=== PATIENT | male | born 1960 | race Caucasian/White ===

== ENCOUNTER → 2020-06-01 10:21 | Outpatient (BNVA) | payer MEDICARE, MEDICAID, SELFPAY | PROVIDERS: PCP Internal Medicine; Referring Provider Internal Medicine; Visit Provider Urology | DX: N40.1 Benign prostatic hyperplasia with lower urinary tract symptoms (principal); N13.8 Other obstructive and reflux uropathy; R35.1 Nocturia; N39.43 Post-void dribbling | CPT/HCPCS: 99212 ==

== ENCOUNTER 2020-11-01 08:57 | Outpatient (REF) | payer OTHER, SELFPAY ==
[2020-11-01 09:51] LABS: MANUAL DIFF FLAG NO
[2020-11-01 09:54] LABS: Basophils Absolute Auto 0.1 X10*3/uL (0.0-0.2); Basophils Percent Auto 0.6 % (0-2); Eosinophils Absolute Auto 0.2 X10*3/uL (0.0-0.4); Eosinophils Percent Auto 2.3 % (0-4); Hematocrit 47.2 % (42-52); Hemoglobin 15.6 g/dl (14.0-18.0); Imm Gran Abs Auto 0.02 X10*3/uL (0.00-0.03); Imm Gran Pct Auto 0.2 % (0.0-0.4); Lymphocytes Absolute Auto 2.5 X10*3/uL (1.2-4.9); Lymphocytes Percent Auto 26.9 % (20-40); Mean Corpuscular HGB Conc 33.1 g/dl (31.0-36.0); Mean Corpuscular Hemoglobin 31.3 pg (27.0-33.0); Mean Corpuscular Volume 94.8 fL (80-98); Mean Platelet Volume 11.4 fL (9.4-12.4); Monocytes Absolute Auto 0.7 X10*3/uL (0.1-1.2); Monocytes Percent Auto 7.1 % (2-11); Neutrophils Absolute Auto 5.9 X10*3/uL (2.0-8.3); Neutrophils Percent Auto 62.9 % (45-73); Platelet Count 291 X10*3/uL (160-400); Red Blood Count 4.98 X10*6/uL (4.60-5.80); Red Cell Distribution Width 14.1 % (11.0-16.0); White Blood Count 9.3 X10*3/uL (4.8-10.8)
[2020-11-01 10:20] LABS: Alanine Aminotransferase 25 U/L (0-40); Albumin Level 4.4 g/dL (3.5-5.0); Alkaline Phosphatase 85 U/L (39-117); Anion Gap 13 (12-20); Aspartate Amino Transferase 21 U/L (5-37); Bilirubin Total 0.5 mg/dL (0.0-1.0); Blood Urea Nitrogen 13 mg/dL (9-16); Calcium 9.5 mg/dL (8.4-10.2); Carbon Dioxide 28 mmol/L (22-29); Chloride 103 mmol/L (96-108); Cholesterol 148 mg/dL; Estimated Glomerular Filt Rate > 60; Glucose Random 136 mg/dL (60-115); HDL Cholesterol 36 mg/dL; LDL Cholesterol Calculated 83 mg/dl; Potassium 4.7 mmol/L (3.3-5.1); Sodium 139 mmol/L (135-145); Total Protein 7.3 g/dL (6.5-8.0); Triglycerides 148 mg/dL
[2020-11-01 10:35] LABS: Free T4 (Free Thyroxine) 0.71 ng/dL (0.71-1.85)
[2020-11-01 10:39] LABS: Estimated Average Glucose 166 mg/dL; Hemoglobin A1c % 7.4 %
[2020-11-01 10:46] LABS: Creatinine Urine 142.95 mg/dL; Microalbum/Creatinine Ratio Ur 11.8 ug/mg cr
== END 2020-11-01 08:58 | disposition home or self-care (01) ==
LOC: HO.LAB 08:57
PROVIDERS: PCP Internal Medicine; Visit Provider Internal Medicine
DX: E11.65 Type 2 diabetes mellitus with hyperglycemia (principal); E78.00 Pure hypercholesterolemia, unspecified
CPT/HCPCS: 36415; 80053; 80061; 82043; 83036; 84439; 84443; 85025

== ENCOUNTER 2021-03-08 10:11 | Outpatient (REF) | payer OTHER, SELFPAY ==
[2021-03-08 12:39] LABS: Alanine Aminotransferase 30 U/L (0-40); Albumin Level 4.5 g/dL (3.5-5.0); Alkaline Phosphatase 82 U/L (39-117); Anion Gap 14 (12-20); Aspartate Amino Transferase 23 U/L (5-37); Bilirubin Total 0.4 mg/dL (0.0-1.0); Blood Urea Nitrogen 12 mg/dL (9-16); Calcium 9.5 mg/dL (8.4-10.2); Carbon Dioxide 29 mmol/L (22-29); Chloride 103 mmol/L (96-108); Estimated Glomerular Filt Rate > 60; Glucose Random 105 mg/dL (60-115); Potassium 4.9 mmol/L (3.3-5.1); Sodium 141 mmol/L (135-145); Total Protein 7.4 g/dL (6.5-8.0)
== END 2021-03-08 10:12 | disposition home or self-care (01) ==
LOC: HO.LAB 10:11
PROVIDERS: PCP Internal Medicine; Visit Provider Internal Medicine
DX: E11.65 Type 2 diabetes mellitus with hyperglycemia (principal)
CPT/HCPCS: 36415; 80053

== ENCOUNTER 2021-05-13 15:17 | Emergency (ER) | payer OTHER, SELFPAY ==
--- NOTE | ~2021-05-13 | XR_ITS ---
EXAMINATION: RIGHT ELBOW, RIGHT FOREARM, AND RIGHT HUMERUS. CLINICAL INFORMATION: Trauma COMPARISON: September 02, 2019 TECHNIQUE: 2 views of the shoulder, 3 views of the elbow, and 2 views of the forearm. FINDINGS: 3 views of the right elbow do not demonstrate any evidence of acute fracture or dislocation. No effusion is appreciated. There is evidence for lateral epicondylitis. AP and lateral views of the right forearm do not demonstrate any evidence of acute fracture or dislocation. There is a large amount of soft tissue swelling present with suspicion of hematoma. There is a linear density about the mid and distal radius however this is not seen on other views and may represent a vascular channel. 2 views of the right shoulder do not demonstrate any evidence of acute fracture or dislocation. Glenohumeral joint unremarkable. Mild spurring about the acromioclavicular joint is seen. XR/XR forearm RT 2V IMPRESSION: Large amount soft tissue swelling without underlying acute bony abnormality about the forearm.. Lateral epicondylitis without elbow effusion. No fracture or dislocation of the right shoulder.
--- NOTE | ~2021-05-13 | XR_ITS ---
EXAMINATION: RIGHT ELBOW, RIGHT FOREARM, AND RIGHT HUMERUS. CLINICAL INFORMATION: Trauma COMPARISON: September 02, 2019 TECHNIQUE: 2 views of the shoulder, 3 views of the elbow, and 2 views of the forearm. FINDINGS: 3 views of the right elbow do not demonstrate any evidence of acute fracture or dislocation. No effusion is appreciated. There is evidence for lateral epicondylitis. AP and lateral views of the right forearm do not demonstrate any evidence of acute fracture or dislocation. There is a large amount of soft tissue swelling present with suspicion of hematoma. There is a linear density about the mid and distal radius however this is not seen on other views and may represent a vascular channel. 2 views of the right shoulder do not demonstrate any evidence of acute fracture or dislocation. Glenohumeral joint unremarkable. Mild spurring about the acromioclavicular joint is seen. XR/XR elbow RT min 3V IMPRESSION: Large amount soft tissue swelling without underlying acute bony abnormality about the forearm.. Lateral epicondylitis without elbow effusion. No fracture or dislocation of the right shoulder.
--- NOTE | ~2021-05-13 | XR_ITS ---
EXAMINATION: RIGHT ELBOW, RIGHT FOREARM, AND RIGHT HUMERUS. CLINICAL INFORMATION: Trauma COMPARISON: September 02, 2019 TECHNIQUE: 2 views of the shoulder, 3 views of the elbow, and 2 views of the forearm. FINDINGS: 3 views of the right elbow do not demonstrate any evidence of acute fracture or dislocation. No effusion is appreciated. There is evidence for lateral epicondylitis. AP and lateral views of the right forearm do not demonstrate any evidence of acute fracture or dislocation. There is a large amount of soft tissue swelling present with suspicion of hematoma. There is a linear density about the mid and distal radius however this is not seen on other views and may represent a vascular channel. 2 views of the right shoulder do not demonstrate any evidence of acute fracture or dislocation. Glenohumeral joint unremarkable. Mild spurring about the acromioclavicular joint is seen. XR/XR humerus RT IMPRESSION: Large amount soft tissue swelling without underlying acute bony abnormality about the forearm.. Lateral epicondylitis without elbow effusion. No fracture or dislocation of the right shoulder.
[2021-05-13 15:43] VITALS: BP 125/75; PULSE 82; RESP 18; TEMP 36.3; O2SAT 97; BMI 37.3
[2021-05-13] MEDS: Ketorolac Tromethamine 60 MG/2 ML VIAL IM (16:41)
[2021-05-13] MEDS: Diphth,Pertus(ACell),Tet Adult 0.5 ML SYRINGE IM (16:41)
[2021-05-13] MEDS: Amoxicillin/Potassium Clav 875 MG TABLET PO (16:41)
--- NOTE | 2021-05-13 17:05 | ED.EXTPRO ---
HPI - Extremity Problem General Chief complaint: Extremity Injury, Upper Stated complaint: arm injury Time Seen by Provider: 05/13/21 16:32 Source: patient Mode of arrival: ambulatory Limitations: no limitations History of Present Illness HPI Narrative: Patient was working on his car went underneath crab picker the nut , adis gave off, car draft and crushed his right forearm patient comes here with abrasion to the dorsal aspect of right forearm with moderate amount of soft tissue swelling no paresthesias good range of movement no other injury Related Data Home Medications Medication Instructions Recorded Confirmed aspirin 81 mg tablet,delayed 81 mg PO DAILY 05/13/20 01/28/21 release (Adult Aspirin Regimen) trazodone 50 mg tablet 50 mg PO BEDTIME PRN 05/13/20 01/28/21 Previous Rx's Medication Instructions Recorded blood-glucose meter (FreeStyle #1 ea 05/25/20 [place] Lite) tamsulosin 0.4 mg capsule 0.4 mg PO DAILY #90 cap 06/01/20 blood sugar diagnostic (FreeStyle 1 strip MISCELLANEOUS DAILY #100 10/29/20 Lite Strips) strip lancets 28 gauge (FreeStyle 28 gauge MISCELLANEOUS DAILY #100 10/29/20 Lancets) cap sertraline 25 mg tablet 25 mg PO DAILY #90 tab 01/17/21 metformin 500 mg tablet 500 mg PO BID 90 Days #180 tab 01/20/21 lisinopril 5 mg tablet 5 mg PO DAILY #30 tab 01/28/21 atorvastatin 20 mg tablet 20 mg PO DAILY #90 tab 04/08/21 terbinafine HCl 250 mg tablet 250 mg PO DAILY #30 tab 04/08/21 olopatadine 0.1 % eye drops 1 drp OPHTHALMIC (EYE) BID 30 Days 05/03/21 #5 ml amoxicillin 875 mg-potassium 1 tab PO BID #20 tab 05/13/21 clavulanate 125 mg tablet (Augmentin) oxycodone-acetaminophen 5 mg-325 1 tab PO Q6H PRN #20 tab 05/13/21 mg tablet (Percocet) Allergies Allergy/AdvReac Type Severity Reaction Status Date / Time No Known Allergies Allergy Verified 05/03/21 10:55 [No Known Allergies*] Review of Systems Review of Systems: Yes all other systems are reviewed and are negative PMFSH Past Medical History Medical History Complex renal cyst Crush injury arm Hypercholesterolemia Obesity Onychomycosis Tobacco abuse Type 2 diabetes mellitus with hyperglycemia Surgical History H/O wisdom tooth extraction Family History Family History Father No problems noted. Mother Diabetes Hypertension Breast cancer Heart attack Social History Social History Housing: Apartment Alcohol intake: former Patient Tobacco Use Status: Current everyday Tobacco user Tobacco use type: Cigarette Cigarettes Per Day: 1 e-Cigarette/Vaping Use: Never Used Second Hand Smoke Exposure: No Advance Directives: No Advance Directives Information Provided: Yes service: No Current occupational status: disabled Physical Exam Vital Signs: Vital Signs: Last Vital Signs Temp 97.3 F 05/13/21 15:43 Pulse 82 05/13/21 15:43 Resp 18 05/13/21 15:43 BP 125/75 05/13/21 15:43 Pulse Ox 97 05/13/21 15:43 Body Mass Index 37.3 Const: General: well developed, alert and acute distress HENMT: Head: Yes normocephalic and Yes atraumatic Extrem: Shoulder/upper arm images: 1. Superficial abrasions extending from lower right arm to proximal right forearm with soft tissue swelling in the volar aspect which is not very tight neurovascular intact no significant increase in painwith passive movement of fingers no signs of compartment syndrome at this time MDM - Extremity (Nontraumatic) MDM Narrative Medical decision making narrative: Patient has significant abrasion contusion of the right forearm part clean with peroxide Xeroform dressing was applied patient was giving sling advised to come back in 2 days for recheck, x-ray negative for fracture. Patient was given antibiotic Augmentin and tetanus shot Discharge Plan Discharge Clinical Impression: Contusion of forearm, right Qualifiers: Encounter type: initial encounter Qualified Code(s): S50.11XA - Contusion of right forearm, initial encounter Patient Disposition: Home, Self-Care Instructions: Contusion in Adults (ED) Additional Instructions: Local care as advised Keep the area covered take antibiotics and pain medication Report to the ER if increased pain or tightness or numbness or tingling of the hand Wear the sling for support Wound recheck in 2 days Prescriptions: New oxycodone-acetaminophen [Percocet] 5-325 mg tablet 1 tab PO Q6H PRN (Reason: pain) Qty: 20 RF: 0 amoxicillin-pot clavulanate [Augmentin] 875-125 mg tablet 1 tab PO BID Qty: 20 RF: 0 No Action (DME) blood-glucose meter [FreeStyle [place] Lite] Kit See Rx Instructions .ROUTE .MEDSUPPLY Qty: 1 RF: 0 sertraline 25 mg tablet 25 mg PO DAILY Qty: 90 RF: 2 metformin 500 mg tablet 500 mg PO BID 90 Days Qty: 180 RF: 3 atorvastatin 20 mg tablet 20 mg PO DAILY Qty: 90 RF: 2 terbinafine HCl 250 mg tablet 250 mg PO DAILY Qty: 30 RF: 1 aspirin [Adult Aspirin Regimen] 81 mg tablet,delayed release (DR/EC) 81 mg PO DAILY RF: 0 trazodone 50 mg tablet 50 mg PO BEDTIME PRNRF: 0 lancets [FreeStyle Lancets] 28 gauge misc 28 gauge miscellaneous DAILY Qty: 100 RF: 3 FreeStyle Lite Strips Strip 1 strip miscellaneous DAILY Qty: 100 RF: 3 lisinopril 5 mg tablet 5 mg PO DAILY Qty: 30 RF: 5 olopatadine 0.1 % drops 1 drp ophthalmic (eye) BID 30 Days Qty: 5 RF: 0 tamsulosin 0.4 mg capsule 0.4 mg PO DAILY Qty: 90 RF: 3
== END 2021-05-13 17:14 | disposition home or self-care (01) ==
PROVIDERS: Emergency Provider Internal Medicine
DX: S50.11XA Contusion of right forearm, initial encounter (principal); S50.811A Abrasion of right forearm, initial encounter; Y29.XXXA Contact with blunt object, undetermined intent, initial encounter; Y93.9 Activity, unspecified; Y92.89 Other specified places as the place of occurrence of the external cause; Y99.9 Unspecified external cause status; F17.210 Nicotine dependence, cigarettes, uncomplicated; Z71.6 Tobacco abuse counseling; Z79.899 Other long term (current) drug therapy
CPT/HCPCS: 73060; 73080; 73090; 90471; 90715; 96372; 99283; 99284; J1885

== ENCOUNTER 2021-05-15 16:43 | Emergency (ER) | payer OTHER, SELFPAY ==
[2021-05-15 16:45] VITALS: BP 111/64; PULSE 70; RESP 18; TEMP 36.6; O2SAT 95; BMI 37.3
--- NOTE | 2021-05-15 17:45 | ED.WOUNDLAC ---
HPI - Wound/Laceration General Chief Complaint: Wound/Laceration Stated Complaint: Wound Check Time Seen by Provider: 05/15/21 17:18 Source: patient Mode of arrival: ambulatory Limitations: no limitations History of Present Illness HPI narrative: Patient status post abrasions/contusion right forearm seen here 2 days ago came here for follow-up for recheck of the wound as advised him to come patient swelling is getting better able to move his hand and wrist without significant pain no fever or chills patient taking Augmentin Related Data Home Medications Medication Instructions Recorded Confirmed aspirin 81 mg tablet,delayed 81 mg PO DAILY 05/13/20 01/28/21 release (Adult Aspirin Regimen) trazodone 50 mg tablet 50 mg PO BEDTIME PRN 05/13/20 01/28/21 Previous Rx's Medication Instructions Recorded blood-glucose meter (FreeStyle #1 ea 05/25/20 [place] Lite) tamsulosin 0.4 mg capsule 0.4 mg PO DAILY #90 cap 06/01/20 blood sugar diagnostic (FreeStyle 1 strip MISCELLANEOUS DAILY #100 10/29/20 Lite Strips) strip lancets 28 gauge (FreeStyle 28 gauge MISCELLANEOUS DAILY #100 10/29/20 Lancets) cap sertraline 25 mg tablet 25 mg PO DAILY #90 tab 01/17/21 metformin 500 mg tablet 500 mg PO BID 90 Days #180 tab 01/20/21 lisinopril 5 mg tablet 5 mg PO DAILY #30 tab 01/28/21 atorvastatin 20 mg tablet 20 mg PO DAILY #90 tab 04/08/21 terbinafine HCl 250 mg tablet 250 mg PO DAILY #30 tab 04/08/21 olopatadine 0.1 % eye drops 1 drp OPHTHALMIC (EYE) BID 30 Days 05/03/21 #5 ml amoxicillin 875 mg-potassium 1 tab PO BID #20 tab 05/13/21 clavulanate 125 mg tablet (Augmentin) oxycodone-acetaminophen 5 mg-325 1 tab PO Q6H PRN #20 tab 05/13/21 mg tablet (Percocet) mupirocin 2 % topical ointment 1 appl TOPICAL BID #22 g 05/15/21 Allergies Allergy/AdvReac Type Severity Reaction Status Date / Time No Known Allergies Allergy Verified 05/15/21 16:45 [No Known Allergies*] Review of Systems Review of Systems: Yes all other systems are reviewed and are negative [facility] Past Medical History Medical History Complex renal cyst Crush injury arm Hypercholesterolemia Obesity Onychomycosis Tobacco abuse Type 2 diabetes mellitus with hyperglycemia Surgical History H/O wisdom tooth extraction Family History Family History Father No problems noted. Mother Diabetes Hypertension Breast cancer Heart attack Social History Social History Housing: Apartment Alcohol intake: former Patient Tobacco Use Status: Current everyday Tobacco user Tobacco use type: Cigarette Cigarettes Per Day: 1 e-Cigarette/Vaping Use: Never Used Second Hand Smoke Exposure: No Advance Directives: No Advance Directives Information Provided: No service: No Current occupational status: disabled Physical Exam Vital Signs: Vital Signs: Last Vital Signs Temp 97.8 F 05/15/21 16:45 Pulse 70 05/15/21 16:45 Resp 18 05/15/21 16:45 BP 111/64 05/15/21 16:45 Pulse Ox 95 05/15/21 16:45 Body Mass Index 37.3 Extrem: Shoulder/upper arm images: 1. Abrasions looks clean no signs of infection soft tissue swelling and right forearm is getting better non tense neurovascular intact no signs of compartment syndrome at this time Procedures Procedure Narrative Procedure Narrative: Right forearm abrasions and contusion were clean with using peroxide bacitracin ointment and Xeroform dressing was applied part dressed with ABD pad Discharge Plan Discharge Clinical Impression: Contusion Qualifiers: Encounter type: subsequent encounter Contusion area: forearm Laterality: right Qualified Code(s): S50.11XD - Contusion of right forearm, subsequent encounter Patient Disposition: Home, Self-Care Instructions: Contusion in Adults (ED) Additional Instructions: Local care as advised Clean with peroxide and apply bacitracin ointment/Bactroban ointment Continue taking antibiotics Report to the ER if increased pain or swelling Keep moving your elbow and fingers Prescriptions: New mupirocin 2 % ointment 1 appl topical BID Qty: 22 RF: 0 No Action (DME) blood-glucose meter [FreeStyle [place] Lite] Kit See Rx Instructions .ROUTE .MEDSUPPLY Qty: 1 RF: 0 sertraline 25 mg tablet 25 mg PO DAILY Qty: 90 RF: 2 metformin 500 mg tablet 500 mg PO BID 90 Days Qty: 180 RF: 3 atorvastatin 20 mg tablet 20 mg PO DAILY Qty: 90 RF: 2 terbinafine HCl 250 mg tablet 250 mg PO DAILY Qty: 30 RF: 1 oxycodone-acetaminophen [Percocet] 5-325 mg tablet 1 tab PO Q6H PRN (Reason: pain) Qty: 20 RF: 0 amoxicillin-pot clavulanate [Augmentin] 875-125 mg tablet 1 tab PO BID Qty: 20 RF: 0 aspirin [Adult Aspirin Regimen] 81 mg tablet,delayed release (DR/EC) 81 mg PO DAILY RF: 0 trazodone 50 mg tablet 50 mg PO BEDTIME PRNRF: 0 lancets [FreeStyle Lancets] 28 gauge misc 28 gauge miscellaneous DAILY Qty: 100 RF: 3 [place] Lite Strips Strip 1 strip miscellaneous DAILY Qty: 100 RF: 3 lisinopril 5 mg tablet 5 mg PO DAILY Qty: 30 RF: 5 olopatadine 0.1 % drops 1 drp ophthalmic (eye) BID 30 Days Qty: 5 RF: 0 tamsulosin 0.4 mg capsule 0.4 mg PO DAILY Qty: 90 RF: 3
== END 2021-05-15 18:12 | disposition home or self-care (01) ==
PROVIDERS: Emergency Provider Internal Medicine; PCP Internal Medicine
DX: S50.812A Abrasion of left forearm, initial encounter (principal); S50.11XA Contusion of right forearm, initial encounter; F17.210 Nicotine dependence, cigarettes, uncomplicated; X58.XXXA Exposure to other specified factors, initial encounter; Y93.9 Activity, unspecified; Y92.9 Unspecified place or not applicable; Y99.9 Unspecified external cause status; Z71.6 Tobacco abuse counseling; Z48.00 Encounter for change or removal of nonsurgical wound dressing; Z79.899 Other long term (current) drug therapy; Z79.82 Long term (current) use of aspirin
CPT/HCPCS: 99283

== ENCOUNTER → 2021-06-09 08:54 | Outpatient (BNVA) | payer OTHER, SELFPAY | PROVIDERS: PCP Internal Medicine; Referring Provider Internal Medicine; Visit Provider Surgery | DX: L72.0 Epidermal cyst (principal) | CPT/HCPCS: 99202 ==

== ENCOUNTER 2022-08-31 12:21 | Outpatient (REF) | payer OTHER, SELFPAY ==
[2022-08-31 12:38] LABS: MANUAL DIFF FLAG NO
[2022-08-31 13:11] LABS: Basophils Absolute Auto 0.1 X10*3/uL (0.0-0.2); Basophils Percent Auto 0.7 % (0-2); Eosinophils Absolute Auto 0.2 X10*3/uL (0.0-0.4); Eosinophils Percent Auto 1.7 % (0-4); Hematocrit 51.2 % (42.0-52.0); Imm Gran Abs Auto 0.02 X10*3/uL (0.00-0.03); Imm Gran Pct Auto 0.2 % (0.0-0.4); Lymphocytes Absolute Auto 2.6 X10*3/uL (1.2-4.9); Lymphocytes Percent Auto 29.7 % (20-40); Mean Corpuscular HGB Conc 33.2 g/dl (31.0-36.0); Mean Corpuscular Hemoglobin 31.3 pg (27.0-33.0); Mean Corpuscular Volume 94.1 fL (80.0-98.0); Mean Platelet Volume 11.7 fL (9.4-12.4); Monocytes Absolute Auto 0.6 X10*3/uL (0.1-1.2); Monocytes Percent Auto 7.1 % (2-11); Neutrophils Absolute Auto 5.3 x10*3/uL (2.0-8.3); Neutrophils Percent Auto 60.6 % (45-73); Platelet Count 303 X10*3/uL (160-400); Red Blood Count 5.44 X10*6/uL (4.60-5.80); Red Cell Distribution Width 13.4 % (11.0-16.0); White Blood Count 8.7 X10*3/uL (4.8-10.8)
[2022-08-31 13:46] LABS: Estimated Average Glucose 177 mg/dL; Hemoglobin A1c % 7.8 %
[2022-08-31 13:58] LABS: Alanine Aminotransferase 40 U/L (0-40); Albumin Level 4.8 g/dL (3.5-5.0); Alkaline Phosphatase 94 U/L (39-117); Anion Gap 16 (12-20); Aspartate Amino Transferase 26 U/L (5-37); Bilirubin Total 0.5 mg/dL (0.0-1.0); Blood Urea Nitrogen 15 mg/dL (9-16); Calcium 10.2 mg/dL (8.4-10.2); Carbon Dioxide 27 mmol/L (22-29); Chloride 103 mmol/L (96-108); Cholesterol 182 mg/dL; Estimated Glomerular Filt Rate > 60; Glucose Random 129 mg/dL (60-115); HDL Cholesterol 41 mg/dL; LDL Cholesterol Calculated 105 mg/dl; Potassium 5.4 mmol/L (3.3-5.1); Sodium 141 mmol/L (135-145); Triglycerides 183 mg/dL
[2022-08-31 14:27] LABS: Creatinine Urine 175.59 mg/dL; Microalbum/Creatinine Ratio Ur 51.2 ug/mg cr
[2022-08-31 14:29] LABS: Folate 15.9 ng/mL (> or = 4.0); Free T4 (Free Thyroxine) 0.84 ng/dL (0.71-1.85); Prostate Specific Antigen Scr 0.42 ng/mL (<0.05-4.0); Thyroid Stimulating Hormone 1.36 uIU/mL (0.32-4.0); Vitamin B12 414 pg/mL (200-900)
== END 2022-08-31 12:22 | disposition home or self-care (01) ==
LOC: HO.LAB 12:21
PROVIDERS: PCP Internal Medicine; Visit Provider Internal Medicine
DX: Z12.5 Encounter for screening for malignant neoplasm of prostate (principal); E11.65 Type 2 diabetes mellitus with hyperglycemia; E78.00 Pure hypercholesterolemia, unspecified
CPT/HCPCS: 36415; 80053; 80061; 82043; 82607; 82746; 83036; 84153; 84439; 84443; 85025

== ENCOUNTER 2023-01-19 13:07 | Outpatient (REF) | payer OTHER, SELFPAY ==
--- NOTE | ~2023-01-19 | CT_ITS ---
EXAMINATION: LUNG CANCER SCREENING CT CHEST WITHOUT CONTRAST CLINICAL INFORMATION: Current smoker with 47 pack year history COMPARISON: None TECHNIQUE: Multidetector volumetric CT imaging of the chest was obtained noncontrast using low dose screening CT technique. Axial thin section 0.625 mm reformations in soft tissue and lung windows were obtained. Sagittal and coronal reformations were obtained. Axial MIP images were also created and reviewed. This CT examination was performed using dose optimization techniques as appropriate, variously including the following: *Automated exposure control *Adjustment of mA and/or kV according to patient size (this includes techniques or standardized protocols for targeted exams where dose is matched to indication/reason for exam; i.e. extremities or head) *Use of iterative reconstruction technique TOTAL EXAM DLP: 86 mGy-cm FINDINGS: PULMONARY NODULES (see dash images): No suspicious pulmonary nodules. There is a 3 mm subpleural nodule along the left lower lobe. LUNGS / PLEURA: No significant emphysema. Minimal diffuse bronchial wall thickening. No acute pneumonic process. No pleural effusion or pneumothorax. MEDIASTINUM / GEGE: Heart normal in size without pericardial effusion. Great vessels normal caliber. No lymphadenopathy. Coronary calcifications present. Imaged thyroid gland unremarkable. CHEST WALL / AXILLA: Unremarkable. UPPER ABDOMEN: Large simple cyst in the right kidney. No follow-up imaging recommended. OSSEOUS STRUCTURES: No acute or suspicious osseous abnormalities. CT/CT lung screening IMPRESSION: No evidence of pulmonary malignancy. ASSESSMENT: Lung RADS category: 1. Negative. No nodules or definitely benign nodules. Continue annual screening with low-dose CT in 12 months. Probability of malignancy less than 1%. RECOMMENDATION: Follow up low dose CT chest in 1 year.
== END 2023-01-19 13:08 | disposition home or self-care (01) ==
LOC: HO.CT 13:07
PROVIDERS: PCP Internal Medicine; Visit Provider Physician Assistant Medical
DX: Z12.2 Encounter for screening for malignant neoplasm of respiratory organs (principal); F17.210 Nicotine dependence, cigarettes, uncomplicated
CPT/HCPCS: 71271; G0296

== ENCOUNTER 2023-03-03 21:52 | Emergency (ER) | payer OTHER, SELFPAY ==
[2023-03-03 22:42] VITALS: BP 130/82; PULSE 69; RESP 18; TEMP 36.7; O2SAT 95; BMI 37.2
== END 2023-03-04 05:11 | disposition left against medical advice (07) ==
PROVIDERS: Emergency Provider Emergency Medicine; PCP Internal Medicine
DX: R51.9 Headache, unspecified (principal)
CPT/HCPCS: 99281

== ENCOUNTER 2023-03-09 10:41 | Outpatient (REF) | payer OTHER, SELFPAY ==
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
== END 2023-03-09 10:42 | disposition home or self-care (01) ==
LOC: HO.XRAY 10:41
PROVIDERS: PCP Internal Medicine; Visit Provider Chiropractor
DX: M54.2 Cervicalgia (principal); M54.6 Pain in thoracic spine; M54.50 Low back pain, unspecified
CPT/HCPCS: 72040; 72070; 72100

== ENCOUNTER 2023-03-28 08:18 | Outpatient (AMB) | payer OTHER, SELFPAY ==
[2023-03-28 08:20] VITALS: BP 130/68; PULSE 68; O2SAT 96; BMI 36.8
--- NOTE | 2023-03-28 08:20 | MHC.PC.OV ---
Vital Signs 03/28/23 08:20 Height 5 ft 9 in Weight 249 lb BMI 36.8 BP 130/68 Blood Pressure Location Lt brachial Position Sitting Pulse 68 Pulse Source Pulse Oximeter Pulse Oximetry (%) 96 Oxygen Delivery Method Room Air Intake Visit Reasons: dm Allergies No Known Allergies [No Known Allergies*] Allergy (Verified 03/28/23 08:21) Tobacco use date assessed: 12/11/22 Dental Screening Dental Screen Date: 03/28/23 Did you have a dental visit in the last 12 months?: No Did you have a dental problem in the last 6 months where you did not have access to dental care?: No Was dental information given to patient?: No HPI dm HPI Details 63-year-old obese male smoker with diabetes mellitus hypercholesterolemia BPH generalized anxiety disorder last seen in November 2022 blood work was requested. Patient was complaining of having chest pains and stress test was requested. Patient is here for follow-up. February 2022 x-ray requested on the spine showing advanced multilevel degenerative changes in the thoracic spine mild multilevel degenerative changes in the cervical spine mild multilevel degenerative changes and lumbar spine. With a history of smoking patient had a CT scan done showing no evidence of pulmonary malignancy and advised to repeat the chest CT in 1 year. PAtient states ran our of cholesterol med [facility] Medical History (Updated 03/28/23 @ 08:42 by Corey Vincent MD) Complex renal cyst Crush injury arm Hypercholesterolemia Nicotine dependence, cigarettes, uncomplicated Obesity Onychomycosis Tubular adenoma of colon Type 2 diabetes mellitus with hyperglycemia Surgical History (Updated 01/01/23 @ 15:13 by Kaylee nA PA-C) History of colonoscopy History of wisdom tooth extraction Family History (Updated 03/28/23 @ 08:21 by Sue Hernandes CMA) Father No problems noted. Mother Diabetes Hypertension Breast cancer Heart attack Social History (Updated 01/19/23 @ 13:06 by Kaylee An PA-C) Housing: Apartment Alcohol intake: former Patient Tobacco Use Status: Current everyday Tobacco user Tobacco use type: Cigarette Cigarettes Per Day: 2 Years Smoked: (onset 14yo x 43yrs, max 1ppd, now 1/4ppd -35pyh) e-Cigarette/Vaping Use: Never Used Second Hand Smoke Exposure: No service: No Current occupational status: disabled Cognitive needs: No Hearing needs: No Vision needs: No Questionnaire PHQ-9 Over the last 2 weeks, how often have you been bothered by any of the following problems? 1. Little interest or pleasure in doing things: several days 2. Feeling down, depressed, or hopeless: several days 3. Trouble falling or staying asleep, or sleeping too much: several days 4. Feeling tired or having little energy: several days 5. Poor appetite or overeating: not at all 6. Feeling bad about yourself - or that you are a failure or have let yourself or your family down: not at all 7. Trouble concentrating on things, such as reading the newspaper or watching television: not at all 8. Moving or speaking so slowly that other people could have noticed. Or the opposite - being so fidgety or restless that you have been moving around a lot more than usual: not at all 9. Thoughts that you would be better off or of hurting yourself in some way: not at all Total score: 4 Depression Screening Interpretation: Positive Source: Developed by Drs. Rosalio Beth, Antonino Hammond and colleagues, with an educational bhaarti from [employer]. Thrive Questionnaire Date Thrive assessed: 08/31/22 AUDIT C Alcohol Use Questionnaire (AUDIT-C) 1. How often do you have a drink containing alcohol?: Never 2. How many drinks containing alcohol do you have on a typical day when you are drinking?: 1 or 2 3. How often do you have six or more drinks on one occasion?: Never Total Score: 0 ELÍAS-7 AMB Questionnaire ELÍAS-7 Date ELÍAS - 7 assessed: 08/31/22 Source: Developed by Drs. Rosalio Beth, Antonino Hammond and colleagues, with an educational bharati from [employer]. Physical exam (Primary Care) Vital Signs: Last Vital Signs Pulse 68 03/28/23 08:20 BP 130/68 03/28/23 08:20 Pulse Ox 96 03/28/23 08:20 Oxygen Delivery Method Room Air 03/28/23 08:20 BMI result Body Mass Index 36.8 Tobacco/Smoking Status: Tobacco use Status Tobacco use date assessed 12/11/22 03/28/23 08:22 Patient Tobacco Use Status Current everyday Tobacco 03/28/23 08:22 Tobacco use type Cigarette 03/28/23 08:22 e-Cigarette/Vaping Use Never Used 03/28/23 08:22 PHQ-9: PHQ-9 Score PHQ-9: Total score 4 03/28/23 08:22 Depression Screening Interpretation: Positive Thrive Assessment: Date of Thrive Assessment Date Thrive assessed 08/31/22 03/28/23 08:22 Const General: alert; No acute distress Eyes Conjunctivae: conjunctivae normal Resp Auscultation: clear to auscultation bilaterally Cardio Rate: regular rate Rhythm: regular rhythm GI Inspection: Yes normal to inspection Extrem General: Yes normal to inspection and No edema Results AMB Hemoglobin A1c AMB Hemoglobin A1c 6.3 % Last Edit by Sue Hernandes CMA on 03/28/23 08:35 Assessment and Plan Assessment & Plan (1) Type 2 diabetes mellitus with hyperglycemia: Comment: [facility] Code(s): E11.65 - Type 2 diabetes mellitus with hyperglycemia Qualifiers: Diabetes mellitus terminal supervisor insulin use: without skilled nursing use Qualified Code(s): E11.65 - Type 2 diabetes mellitus with hyperglycemia Plan: Decrease the amount of carbohydrate intake, pasta, bread, rice and potatoes are all sugar and that is aside from all the sweet stuff, remember that fruits are good but they are Sweet also. Hemoglobin A1c goal of less than 6.5 patient is on metformin 2000 mg once a day (2) Hypercholesterolemia: Code(s): E78.00 - Pure hypercholesterolemia, unspecified Plan: Avoid fried foods, chicken skin, eggs, butter margarine, pastries and meat. Be it pork or beef they have a lot of cholesterol LDL goal of less than 100. Patient is on atorvastatin 20 mg once a day blood work requested not done (3) Obesity: Code(s): E66.9 - Obesity, unspecified Qualifiers: Body mass index: BMI 40.0-44.9 Obesity classification: adult class 3 (BMI >= 40) Obesity type: due to excess calories Serious obesity comorbidity presence: with serious comorbidity Qualified Code(s): E66.01 - Morbid (severe) obesity due to excess calories; Z68.41 - Body mass index [BMI]40.0-44.9, adult Plan: Diet and exercise (4) BPH w urinary obs/LUTS: Code(s): N40.1 - Benign prostatic hyperplasia with lower urinary tract symptoms; N13.8 - Other obstructive and reflux uropathy Plan: Continue with tamsulosin (5) Generalized anxiety disorder: Comment: [facility] [place] [facility]. Psychiatry Q 3 months Code(s): F41.1 - Generalized anxiety disorder Plan: Continue with sertraline 25 mg once a day (6) Nicotine dependence, cigarettes, uncomplicated: Comment: (current smoker, onset 14yo x 43yrs, max 1ppd, now 1/4ppd -35pyh) CT scan December 2022 Code(s): F17.210 - Nicotine dependence, cigarettes, uncomplicated Plan: Patient is strongly advised to stop smoking!- states doing 2cigarettes a day (7) Degenerative joint disease of spine: Comment: December 2022 cervical to lumbar Code(s): M47.9 - Spondylosis, unspecified Orders: Orders Comprehensive Met. Panel 3 Months E78.00 - Pure hypercholesterolemia, unspecified Lipid Panel 3 Months E78.00 - Pure hypercholesterolemia, unspecified AMB Hemoglobin A1c Today Z13.9 - Encounter for screening, unspecified Medications: Refilled atorvastatin 20 mg PO DAILY 90 tabs 1RF Coding Level of Care Code Est Pt Level 4 (12372) Diagnoses Type 2 diabetes mellitus with hyperglycemia E11.65 Diabetes mellitus terminal supervisor insulin use: without skilled nursing use Hypercholesterolemia E78.00 Obesity E66.01; Z68.41 Body mass index: BMI 40.0-44.9 Obesity classification: adult class 3 (BMI >= 40) Obesity type: due to excess calories Serious obesity comorbidity presence: with serious comorbidity BPH w urinary obs/LUTS N40.1; N13.8 Generalized anxiety disorder F41.1 Nicotine dependence, cigarettes, uncomplicated F17.210 Degenerative joint disease of spine M47.9
== END 2023-03-28 08:47 | disposition home or self-care (01) ==
PROVIDERS: PCP Internal Medicine; Visit Provider Internal Medicine
DX: E11.65 Type 2 diabetes mellitus with hyperglycemia (principal); E66.01 Morbid (severe) obesity due to excess calories; Z68.41 Body mass index [BMI] 40.0-44.9, adult; F17.210 Nicotine dependence, cigarettes, uncomplicated; E78.00 Pure hypercholesterolemia, unspecified; N40.1 Benign prostatic hyperplasia with lower urinary tract symptoms; N13.8 Other obstructive and reflux uropathy; F41.1 Generalized anxiety disorder; M47.9 Spondylosis, unspecified
CPT/HCPCS: 83036; 99214

== ENCOUNTER 2023-07-12 08:45 | Outpatient (AMB) | payer OTHER, SELFPAY ==
[2023-07-12 08:47] VITALS: BP 118/70; PULSE 70; O2SAT 96; BMI 34.9
--- NOTE | 2023-07-12 08:47 | MHC.PC.OV ---
Vital Signs 07/12/23 08:47 Height 5 ft 9 in Weight 236 lb 2 oz BMI 34.9 BP 118/70 Blood Pressure Location Lt brachial Position Sitting Pulse 70 Pulse Source Pulse Oximeter Pulse Oximetry (%) 96 Oxygen Delivery Method Room Air Intake Visit Reasons: DM , Cholesterol Online Merchandising Coordinator Required: No Accompanied by: Self / Same As Patient Allergies No Known Allergies [No Known Allergies*] Allergy (Verified 07/12/23 08:48) Medication List - Last Reconciled 07/12/23 by Corey Vincent MD atorvastatin 20 mg PO DAILY blood sugar diagnostic (FreeStyle Lite Strips) 1 strip miscellaneous DAILY blood-glucose meter (FreeStyle [place] Lite kit) As directed lancets (FreeStyle Lancets) 28 gauge miscellaneous DAILY lisinopril 5 mg PO DAILY loratadine (Claritin) 10 mg PO DAILY metformin 1,000 mg (2 x 500 mg) PO BIDWMEAL 90 days mupirocin 2% 1 appl topical BID olopatadine 0.1% 1 drp ophthalmic (eye) BID 30 days psyllium husk (Fiber (psyllium husk)) 0.52 grams PO BEDTIME PRN sertraline 25 mg PO DAILY tamsulosin 0.4 mg PO DAILY terbinafine HCl 250 mg PO DAILY trazodone 50 mg PO BEDTIME PRN Tobacco use date assessed: 12/11/22 Dental Screening Dental Screen Date: 07/12/23 Did you have a dental visit in the last 12 months?: No Did you have a dental problem in the last 6 months where you did not have access to dental care?: No Was dental information given to patient?: Patient has dentist HPI DM , Cholesterol HPI Details 63-year-old obese male smoker with diabetes mellitus hypercholesterolemia generalized anxiety disorder BPH chronic low back pain coming in for follow-up. Last seen in March 2023. Patient is up-to-date with colonoscopy doing good occasionally complains of being in the bathroom for long time for bowel movement. Discussed about fiber fluids and keeping active. Noted weight loss. As for the diabetes under control. Discussed about needing to get blood work done here [facility] Medical History (Updated 07/12/23 @ 09:19 by Corey Vincent MD) Tubular adenoma of colon Nicotine dependence, cigarettes, uncomplicated Type 2 diabetes mellitus with hyperglycemia Crush injury arm Onychomycosis Complex renal cyst Hypercholesterolemia Obesity Surgical History History of wisdom tooth extraction History of colonoscopy Family History Father No problems noted. Mother Diabetes Hypertension Breast cancer Heart attack Social History Housing: Apartment Alcohol intake: former Patient Tobacco Use Status: Current everyday Tobacco user Tobacco use type: Cigarette Cigarettes Per Day: 2 Years Smoked: (onset 14yo x 43yrs, max 1ppd, now 1/4ppd -35pyh) e-Cigarette/Vaping Use: Never Used Second Hand Smoke Exposure: No service: No Current occupational status: disabled Cognitive needs: No Hearing needs: No Vision needs: No Questionnaire PHQ-9 Over the last 2 weeks, how often have you been bothered by any of the following problems? 1. Little interest or pleasure in doing things: several days 2. Feeling down, depressed, or hopeless: several days 3. Trouble falling or staying asleep, or sleeping too much: several days 4. Feeling tired or having little energy: several days 5. Poor appetite or overeating: not at all 6. Feeling bad about yourself - or that you are a failure or have let yourself or your family down: not at all 7. Trouble concentrating on things, such as reading the newspaper or watching television: not at all 8. Moving or speaking so slowly that other people could have noticed. Or the opposite - being so fidgety or restless that you have been moving around a lot more than usual: not at all 9. Thoughts that you would be better off or of hurting yourself in some way: not at all Total score: 4 Depression Screening Interpretation: Positive Depression Screening Done: Yes Source: Developed by Drs. Rosalio Beth, Antonino Hammond and colleagues, with an educational bharati from [employer] Thrive Questionnaire Date Thrive assessed: 08/31/22 ELÍAS-7 AMB Questionnaire ELÍAS-7 Date ELÍAS - 7 assessed: 08/31/22 Source: Developed by Drs. Rosalio Beth, Antonino Hammond and colleagues, with an educational bharati from [employer] Physical exam (Primary Care) Vital Signs: Last Vital Signs Pulse 70 07/12/23 08:47 BP 118/70 07/12/23 08:47 Pulse Ox 96 07/12/23 08:47 Oxygen Delivery Method Room Air 07/12/23 08:47 BMI result Body Mass Index 34.9 Tobacco/Smoking Status: Tobacco use Status Tobacco use date assessed 12/11/22 07/12/23 08:50 Patient Tobacco Use Status Current everyday Tobacco 07/12/23 08:50 Tobacco use type Cigarette 07/12/23 08:50 e-Cigarette/Vaping Use Never Used 07/12/23 08:50 PHQ-9: PHQ-9 Score PHQ-9: Total score 4 07/12/23 09:07 Depression Screening Interpretation: Positive Thrive Assessment: Date of Thrive Assessment Date Thrive assessed 08/31/22 07/12/23 08:50 Const General: alert; No acute distress Eyes Conjunctivae: conjunctivae normal Resp Auscultation: clear to auscultation bilaterally Cardio Rate: regular rate Rhythm: regular rhythm GI Inspection: Yes normal to inspection Extrem General: Yes normal to inspection and No edema Results AMB Hemoglobin A1c AMB Hemoglobin A1c 6.5 % Last Edit by Melonie Carballo on 07/12/23 09:07 Results Reviewed Results Reviewed: Laboratory Last Values Hgb A1c (Clinic) 6.5 % (4.0-6.0) H 07/12/23 08:54 Assessment and Plan Assessment & Plan (1) Type 2 diabetes mellitus with hyperglycemia: Comment: [facility] Code(s): E11.65 - Type 2 diabetes mellitus with hyperglycemia Qualifiers: Diabetes mellitus terminal operator insulin use: without fci use Qualified Code(s): E11.65 - Type 2 diabetes mellitus with hyperglycemia Plan: Decrease the amount of carbohydrate intake, pasta, bread, rice and potatoes are all sugar and that is aside from all the sweet stuff, remember that fruits are good but they are Sweet also. Hemoglobin A1c goal of less than 6.5. Patient is on metformin 1000 mg twice a day (2) Hypercholesterolemia: Code(s): E78.00 - Pure hypercholesterolemia, unspecified Plan: Avoid fried foods, chicken skin, eggs, butter margarine, pastries and meat. Be it pork or beef they have a lot of cholesterol LDL goal of less than 100 and triglyceride of less than 150. Patient on atorvastatin patient needs blood work (3) Obesity: Code(s): E66.9 - Obesity, unspecified Qualifiers: Body mass index: BMI 40.0-44.9 Obesity classification: adult class 3 (BMI >= 40) Obesity type: due to excess calories Serious obesity comorbidity presence: with serious comorbidity Qualified Code(s): E66.01 - Morbid (severe) obesity due to excess calories; Z68.41 - Body mass index [BMI]40.0-44.9, adult Plan: Diet and exercise. Noted weight loss (4) BPH w urinary obs/LUTS: Code(s): N40.1 - Benign prostatic hyperplasia with lower urinary tract symptoms; N13.8 - Other obstructive and reflux uropathy Plan: Continue with tamsulosin (5) Generalized anxiety disorder: Comment: [facility] counseling every 2 weeks. Psychiatry Q 3 months Code(s): F41.1 - Generalized anxiety disorder Plan: Continue with present medication and counseling (6) Nicotine dependence, cigarettes, uncomplicated: Comment: (current smoker, onset 14yo x 43yrs, max 1ppd, now 1/4ppd -35pyh) CT scan December 2022 Code(s): F17.210 - Nicotine dependence, cigarettes, uncomplicated Plan: Patient is strongly advised to stop smoking! (7) Constipation: Code(s): K59.00 - Constipation, unspecified Orders: Orders AMB Hemoglobin A1c Today Z13.9 - Encounter for screening, unspecified Thyroid Stimulating Hormone Today E11.65 - Type 2 diabetes mellitus with hyperglycemia Prostate Specific Antigen Scr Today E11.65 - Type 2 diabetes mellitus with hyperglycemia Complete Blood Count Auto Diff Today E11.65 - Type 2 diabetes mellitus with hyperglycemia Free T4 (Free Thyroxine) Today E11.65 - Type 2 diabetes mellitus with hyperglycemia Vitamin B12 and Folate Today E11.65 - Type 2 diabetes mellitus with hyperglycemia Medications: New psyllium husk (Fiber (psyllium husk)) 0.52 grams PO BEDTIME PRN 30 caps 4RF constipation K59.00 - Constipation, unspecified Coding Level of Care Code Est Pt Level 4 (28575) Diagnoses Type 2 diabetes mellitus with hyperglycemia, without long-term current use of insulin E11.65 Diabetes mellitus fci insulin use: without terminal operator use Hypercholesterolemia E78.00 Class 3 severe obesity due to excess calories with serious comorbidity and body mass index (BMI) of 40.0 to 44.9 in adult E66.01; Z68.41 Body mass index: BMI 40.0-44.9 Obesity classification: adult class 3 (BMI >= 40) Obesity type: due to excess calories Serious obesity comorbidity presence: with serious comorbidity BPH w urinary obs/LUTS N40.1; N13.8 Generalized anxiety disorder F41.1 Nicotine dependence, cigarettes, uncomplicated F17.210 Constipation K59.00
== END 2023-07-12 09:29 | disposition home or self-care (01) ==
PROVIDERS: PCP Internal Medicine; Visit Provider Internal Medicine
DX: Z23 Encounter for immunization (principal); E11.65 Type 2 diabetes mellitus with hyperglycemia; E78.00 Pure hypercholesterolemia, unspecified; E66.01 Morbid (severe) obesity due to excess calories; Z68.41 Body mass index [BMI] 40.0-44.9, adult; N40.1 Benign prostatic hyperplasia with lower urinary tract symptoms; N13.8 Other obstructive and reflux uropathy; F41.1 Generalized anxiety disorder; F17.210 Nicotine dependence, cigarettes, uncomplicated; K59.00 Constipation, unspecified
CPT/HCPCS: 83036; 90471; 90686; 99214

== ENCOUNTER 2023-07-12 09:33 | Outpatient (REF) | payer OTHER, SELFPAY ==
[2023-07-12 09:44] LABS: MANUAL DIFF FLAG NO
[2023-07-12 10:43] LABS: Basophils Absolute Auto 0.1 X10*3/uL (0.0-0.2); Basophils Percent Auto 0.8 % (0-2); Eosinophils Absolute Auto 0.2 X10*3/uL (0.0-0.4); Eosinophils Percent Auto 1.7 % (0-4); Hematocrit 48.2 % (42.0-52.0); Hemoglobin 16.1 g/dl (14.0-18.0); Imm Gran Abs Auto 0.03 X10*3/uL (0.00-0.03); Imm Gran Pct Auto 0.3 % (0.0-0.4); Lymphocytes Absolute Auto 2.1 X10*3/uL (1.2-4.9); Lymphocytes Percent Auto 22.8 % (20-40); Mean Corpuscular HGB Conc 33.4 g/dl (31.0-36.0); Mean Corpuscular Hemoglobin 31.2 pg (27.0-33.0); Mean Corpuscular Volume 93.4 fL (80.0-98.0); Mean Platelet Volume 12.2 fL (9.4-12.4); Monocytes Absolute Auto 0.6 X10*3/uL (0.1-1.2); Monocytes Percent Auto 6.7 % (2-11); Neutrophils Absolute Auto 6.1 x10*3/uL (2.0-8.3); Neutrophils Percent Auto 67.7 % (45-73); Platelet Count 292 X10*3/uL (160-400); Red Blood Count 5.16 X10*6/uL (4.60-5.80); Red Cell Distribution Width 13.2 % (11.0-16.0)
[2023-07-12 11:25] LABS: Alanine Aminotransferase 18 U/L (0-40); Albumin Level 4.8 g/dL (3.5-5.0); Alkaline Phosphatase 75 U/L (39-117); Anion Gap 14 (12-20); Aspartate Amino Transferase 16 U/L (5-37); Bilirubin Total 0.5 mg/dL (0.0-1.0); Blood Urea Nitrogen 10 mg/dL (9-16); Carbon Dioxide 30 mmol/L (22-29); Chloride 102 mmol/L (96-108); Cholesterol 106 mg/dL (<200); Estimated Glomerular Filt Rate > 60; Glucose Random 115 mg/dL (60-115); HDL Cholesterol 36 mg/dL (>40); LDL Cholesterol Calculated 52 mg/dL (<100); Potassium 3.7 mmol/L (3.3-5.1); Sodium 142 mmol/L (135-145); Triglycerides 94 mg/dL (<150)
[2023-07-12 11:32] LABS: Free T4 (Free Thyroxine) 0.97 ng/dL (0.71-1.85); Thyroid Stimulating Hormone 1.97 uIU/mL (0.32-4.0)
[2023-07-12 11:49] LABS: Folate 6.4 ng/mL (> or = 4.0); Prostate Specific Antigen Scr 0.42 ng/mL (<0.05-4.0); Vitamin B12 421 pg/mL (200-900)
[2023-07-12 12:45] LABS: Creatinine Urine 311.31 mg/dL
== END 2023-07-12 09:34 | disposition home or self-care (01) ==
LOC: HO.LAB 09:33
PROVIDERS: PCP Internal Medicine; Visit Provider Internal Medicine
DX: E11.65 Type 2 diabetes mellitus with hyperglycemia (principal); E78.00 Pure hypercholesterolemia, unspecified; Z12.5 Encounter for screening for malignant neoplasm of prostate
CPT/HCPCS: 36415; 80053; 80061; 82570; 82607; 82746; 84153; 84439; 84443; 85025

== ENCOUNTER 2023-11-28 15:15 | Outpatient (AMB) | payer OTHER, SELFPAY ==
[2023-11-28 15:21] VITALS: BP 162/96; PULSE 82; O2SAT 98; BMI 32.5
--- NOTE | 2023-11-28 15:21 | A.OFFPC_ITS ---
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: No Bin Tripper Operator: Not Required per policy Accompanied by: Self / Same As Patient Allergies No Known Allergies [No Known Allergies*] Allergy (Verified 11/28/23 15:22) Medication List - Last Reconciled 11/28/23 by Corey Vincent MD atorvastatin 20 mg PO DAILY blood sugar diagnostic (FreeStyle Lite Strips) 1 strip miscellaneous DAILY blood-glucose meter (FreeStyle [place] Lite kit) As directed lancets (FreeStyle Lancets) 28 gauge miscellaneous DAILY lisinopril 5 mg PO DAILY metformin 1,000 mg (2 x 500 mg) PO BIDWMEAL 90 days mupirocin 2% 1 appl topical BID olopatadine 0.1% 1 drp ophthalmic (eye) BID 30 days psyllium husk (Fiber (psyllium husk)) 0.52 grams PO BEDTIME PRN sertraline 25 mg PO DAILY Tobacco use date assessed: 11/28/23 Dental Screening Dental Screen Date: 11/28/23 Did you have a dental visit in the last 12 months?: No Did you have a dental problem in the last 6 months where you did not have access to dental care?: No Was dental information given to patient?: Patient has dentist HPI pe HPI Details 63-year-old obese male smoker with diabe nancy mellitus hypercholesterolemia BPH generalized anxiety disorder comes in for physical exam. Last seen in June. Colonoscopy last done in February 2020. Eye exam noted June 2023 nuclear cataract. indiscriminate eating estonian fries discussed thatthis is not good. walks 3-4 x a day. noted weight loss and state have no apetitte. derek interpret [id number] PAtient states he is intentiomnally doing this [facility] Medical History (Updated 11/28/23 @ 16:07 by Corey Vincent MD) Tubular adenoma of colon Nicotine dependence, cigarettes, uncomplicated Type 2 diabetes mellitus with hyperglycemia Crush injury arm Onychomycosis Complex renal cyst Hypercholesterolemia Obesity Surgical History History of wisdom tooth extraction History of colonoscopy Family History Father No problems noted. Mother Diabetes Hypertension Breast cancer Heart attack Social History (Updated 11/28/23 @ 15:43 by Corey Vincent MD) Housing: Apartment Alcohol intake: former Patient Tobacco Use Status: Current everyday Tobacco user Tobacco use type: Cigarette Cigarettes Per Day: 4 Years Smoked: (onset 14yo x 43yrs, max 1ppd, now 1/4ppd -35pyh) e-Cigarette/Vaping Use: Never Used Second Hand Smoke Exposure: No service: No Current occupational status: disabled Cognitive needs: No Hearing needs: No Vision needs: No Questionnaire PHQ-9 Over the last 2 weeks, how often have you been bothered by any of the following problems? 1. Little interest or pleasure in doing things: several days 2. Feeling down, depressed, or hopeless: nearly every day 3. Trouble falling or staying asleep, or sleeping too much: several days 4. Feeling tired or having little energy: several days 5. Poor appetite or overeating: not at all 6. Feeling bad about yourself - or that you are a failure or have let yourself or your family down: not at all 7. Trouble concentrating on things, such as reading the newspaper or watching television: not at all 8. Moving or speaking so slowly that other people could have noticed. Or the opposite - being so fidgety or restless that you have been moving around a lot more than usual: not at all 9. Thoughts that you would be better off or of hurting yourself in some way: not at all Total score: 6 Depression Screening Interpretation: Positive Depression Screening Done: Yes Source: Developed by Drs. Rosalio Beth, Constance Lewis, Antonino Magana and colleagues, with an educational bharati from [employer]. Thrive Questionnaire Date Thrive assessed: 11/28/23 I am a: Patient What is your living situation today?: I have a steady place to live Within the past 12 months, did the food you bought not last and you didn't have the money to get more?: Never true Within the past 12 months, did you worry whether your food would run out before you got money to buy more?: Never true Do you have trouble paying for medicines?: No Do you have trouble getting transportation to medical appointments?: No Do you have trouble paying your heating and electricity bill?: No Do you have trouble taking care of your child, family member or friend?: No Do you have trouble with day-to-day activities such as bathing, preparing meals, shopping, managing finances, etc.?: No Are you currently unemployed and looking for a job?: No Are you interested in more education?: No Please select the resources that you would like help with: None THRIVE Score: 0 AUDIT C Alcohol Use Questionnaire (AUDIT-C) 1. How often do you have a drink containing alcohol?: Never 2. How many drinks containing alcohol do you have on a typical day when you are drinking?: 1 or 2 3. How often do you have six or more drinks on one occasion?: Never Total Score: 0 ELÍAS-7 AMB Questionnaire ELÍAS-7 Date ELÍAS - 7 assessed: 11/28/23 Feeling nervous, anxious, or on edge: 0 = Not at all Not being able to stop or control worryin = Not at all Worrying too much about different things: 0 = Not at all Trouble relaxin = Not at all Being so restless that it is hard to sit still: 0 = Not at all Becoming easily annoyed or irritable: 0 = Not at all Feeling afraid as if something awful might happen: 0 = Not at all Total ELÍAS-7 score (0-4 normal; 5-9 mild; 10-14 moderate; 15-21 severe): 0 Source: Developed by Drs. Rosalio Beth, Constance Lewis, Antonino Magana and colleagues, with an educational bharati from [employer]. Review of Systems Const Denies poor appetite and Denies weakness Eyes Denies no additional complaints ENT Reports Normal hearing present, Denies dizziness, Denies nasal congestion, Denies tinnitus and Denies sore throat Card Denies chest pain, Denies syncope, Denies rapid heart rate and Denies dyspnea Resp Denies cough and Denies dyspnea GI Denies change in stool character, Reports constipation, Denies diarrhea, Denies nausea and Denies vomiting Denies dysuria and Denies urinary frequency Neuro Reports Normal hearing present, Denies confusion, Denies dizziness, Denies syncope and Denies weakness Psych Denies confusion Physical exam (Primary Care) Vital Signs: Last Vital Signs Pulse 82 11/28/23 15:21 BP 130/90 H 11/28/23 15:38 Pulse Ox 98 11/28/23 15:21 Oxygen Delivery Method Room Air 11/28/23 15:21 BMI result Body Mass Index 32.5 Tobacco/Smoking Status: Tobacco use Status Tobacco use date assessed 11/28/23 11/28/23 15:23 Patient Tobacco Use Status Current everyday Tobacco 11/28/23 15:43 Tobacco use type Cigarette 11/28/23 15:43 e-Cigarette/Vaping Use Never Used 11/28/23 15:43 PHQ-9: PHQ-9 Score PHQ-9: Total score 6 11/28/23 15:36 Depression Screening Interpretation: Positive Thrive Assessment: Date of Thrive Assessment Date Thrive assessed 11/28/23 11/28/23 15:23 Const General: No confusion Orientation/consciousness: No confusion HENMT Head: Yes normocephalic Ears: external ears normal and TM's normal bilaterally Face and sinus: Yes normal facial exam Mouth: moist mucous membranes Throat: Yes tonsils normal Eyes Conjunctivae: conjunctivae normal Pupils: Equal, round and reactive pupils present and Pupil accommodation reflex normal Direct Ophthalmoscopy: normal light reflex Neck Neck: No lymphadenopathy Thyroid: Thyroid normal Chest Chest palpation & inspection: normal inspection of the chest Resp Effort & Inspection: normal respiratory effort and no audible wheezes Auscultation: clear to auscultation bilaterally, no crackles, no wheezes and lung sounds not diminished Cardio Rate: regular rate Rhythm: regular rhythm Peripheral pulses: radial pulses present and dorsalis pedis present GI Other: decline rectal exam Palpation (GI): no masses Auscultation: normal bowel sounds and normoactive bowel sounds Rectal Exam - Male: Yes deferred Male General Exam: Yes normal external exam Skin General skin exam: no rashes or lesions noted Rashes: no rashes Neuro General: No confusion Cranial nerves: Yes Equal, round and reactive pupils present and Yes Normal hearing present Cognition (Neuro): normal cognition Gait exam (Neuro): Normal gait present Motor exam (neuro): 5/5 motor strength present throughout Deep tendon reflexes (DTR's): Right brachioradialis reflex intensity grade: 2+, Left brachioradialis reflex intensity grade: 2+, Right patellar reflex intensity grade: 2+ and Left patellar reflex intensity grade: 2+ Extrem General: No edema Results AMB Hemoglobin A1c AMB Hemoglobin A1c 5.7 % Last Edit by HOMA Beth on 11/28/23 16:04 Assessment and Plan Assessment & Plan (1) Annual physical exam: Code(s): Z00.00 - Encounter for general adult medical examination without abnormal findings (2) Type 2 diabetes mellitus with hyperglycemia: Comment: [facility] Code(s): E11.65 - Type 2 diabetes mellitus with hyperglycemia Qualifiers: Diabetes mellitus [facility] insulin use: without director long term care use Qualified Code(s): E11.65 - Type 2 diabetes mellitus with hyperglycemia Plan: Decrease the amount of carbohydrate intake, pasta, bread, rice and potatoes are all sugar and that is aside from all the sweet stuff, remember that fruits are good but they are Sweet also. Hemoglobin A1c goal of less than 6.5. Patient on metformin 1000 mg twice a day (3) Hypercholesterolemia: Code(s): E78.00 - Pure hypercholesterolemia, unspecified Plan: Avoid fried foods, chicken skin, eggs, butter margarine, pastries and meat. Be it pork or beef they have a lot of cholesterol June 2023 last blood work LDL goal of less than 100 and triglyceride of less than 150. Patient on atorvastatin (4) Obesity: Code(s): E66.9 - Obesity, unspecified Qualifiers: Body mass index: BMI 40.0-44.9 Obesity classification: adult class 3 (BMI >= 40) Obesity type: due to excess calories Serious obesity comorbidity presence: with serious comorbidity Qualified Code(s): E66.01 - Morbid (severe) obesity due to excess calories; Z68.41 - Body mass index [BMI]40.0-44.9, adult Plan: 20 mg once a day diet and exercise (5) BPH w urinary obs/LUTS: Code(s): N40.1 - Benign prostatic hyperplasia with lower urinary tract symptoms; N13.8 - Other obstructive and reflux uropathy Plan: Continue with tamsulosin (6) Diabetic nephropathy: Code(s): E11.21 - Type 2 diabetes mellitus with diabetic nephropathy Plan: Placed on lisinopril 5 mg once a day (7) Generalized anxiety disorder: Comment: [facility] counseling every 2 weeks. Psychiatry Q 3 months Code(s): F41.1 - Generalized anxiety disorder Plan: Continue with counseling and treatment. (8) Low back pain: Code(s): M54.50 - Low back pain, unspecified Plan: xray done last year Showing OA (9) Weight loss: Code(s): R63.4 - Abnormal weight loss (10) Blood pressure elevated without history of HTN: Code(s): R03.0 - Elevated blood-pressure reading, without diagnosis of hypertension Plan: low salt diet presently on lisinopril Orders: Orders AMB Hemoglobin A1c Today E11.65 - Type 2 diabetes mellitus with hyperglycemia Medications: New acetaminophen ER (Tylenol Arthritis Pain) 1,300 mg (2 x 650 mg) PO Q12H 60 tabs 2RF Changed From metformin 1,000 mg (2 x 500 mg) PO BIDWMEAL 90 days 360 tabs 1RF E11.65 - Type 2 diabetes mellitus with hyperglycemia To metformin 500 mg PO BIDWMEAL 90 days 180 tabs 1RF E11.65 - Type 2 diabetes mellitus with hyperglycemia Refilled metformin 1,000 mg (2 x 500 mg) PO BIDWMEAL 90 days 360 tabs 1RF E11.65 - Type 2 diabetes mellitus with hyperglycemia Coding Level of Care Code Est Pt Prev Care 40-64y(19253) Diagnoses Annual physical exam Z00.00 Type 2 diabetes mellitus with hyperglycemia, without long-term current use of insulin E11.65 Diabetes mellitus [facility] insulin use: without director long term care use Hypercholesterolemia E78.00 Class 3 severe obesity due to excess calories with serious comorbidity and body mass index (BMI) of 40.0 to 44.9 in adult E66.01; Z68.41 Body mass index: BMI 40.0-44.9 Obesity classification: adult class 3 (BMI >= 40) Obesity type: due to excess calories Serious obesity comorbidity presence: with serious comorbidity BPH w urinary obs/LUTS N40.1; N13.8 Diabetic nephropathy E11.21 Generalized anxiety disorder F41.1 Low back pain M54.50 Weight loss R63.4 Blood pressure elevated without history of HTN R03.0
[2023-11-28 15:38] VITALS: BP 130/90
== END 2023-11-28 16:15 | disposition home or self-care (01) ==
PROVIDERS: PCP Internal Medicine; Visit Provider Internal Medicine
DX: Z00.00 Encounter for general adult medical examination without abnormal findings (principal); E11.65 Type 2 diabetes mellitus with hyperglycemia; E66.01 Morbid (severe) obesity due to excess calories; Z68.41 Body mass index [BMI] 40.0-44.9, adult; E11.21 Type 2 diabetes mellitus with diabetic nephropathy; E78.00 Pure hypercholesterolemia, unspecified; N40.1 Benign prostatic hyperplasia with lower urinary tract symptoms; N13.8 Other obstructive and reflux uropathy; F41.1 Generalized anxiety disorder; M54.50 Low back pain, unspecified; R63.4 Abnormal weight loss; R03.0 Elevated blood-pressure reading, without diagnosis of hypertension
CPT/HCPCS: 83036; 99396

== ENCOUNTER 2024-01-23 16:18 | Outpatient (REF) | payer OTHER, SELFPAY ==
--- NOTE | ~2024-01-23 | CT_ITS ---
EXAMINATION: CT LOW-DOSE SCREENING CHEST WITHOUT CONTRAST CLINICAL INFORMATION: Nicotine dependence, cigarettes, uncomplicated. The patient is a current smoker with a 74 pack-year history of smoking. COMPARISON: CT chest 01/19/2023. TECHNIQUE: Multidetector volumetric CT imaging of the chest is performed on a Siemens SOMATOM Definition scanner without contrast using low dose technique. Additional 2D coronal and sagittal reformatted images and axial 3D maximum intensity projection (MIP) images are generated on the CT workstation. This CT examination was performed using dose optimization techniques as appropriate, variously including the following: *Automated exposure control. *Adjustment of mA and/or kV according to patient size (this includes techniques or standardized protocols for targeted exams where dose is matched to indication/reason for exam; i.e. extremities or head). *Use of iterative reconstruction technique. TOTAL EXAM DLP: 65 mGy-cm CTDIvol: 2.07 mGy FINDINGS: PULMONARY NODULES: A few small pulmonary nodules are unchanged, the largest a 3 mm subpleural nodule at the left lung base (5:304 compare prior 5:296). Aguilar images of all have been saved. LUNGS: Lungs bilaterally symmetrically expanded. There is minimal emphysema and mild bronchial thickening without bronchiectasis. No effusion or pneumothorax. Central airways patent. MEDIASTINUM: No mediastinal, hilar or axillary adenopathy or free fluid collection. CORONARY ARTERY CALCIFICATION: Minimal. THYROID GLAND: Unremarkable to the extent seen. CARDIOVASCULAR STRUCTURES: Aortic and heart size normal. No pericardial effusion. CHEST WALL/AXILLA: Unremarkable. UPPER ABDOMEN: Included portions of the solid organs in the upper abdomen unremarkable on noncontrast imaging. A benign cyst is present in the right lobe of the liver with a very large partially imaged cyst at the upper pole of the right kidney. OSSEOUS STRUCTURES: No suspicious focal findings. CT/CT lung screening IMPRESSION: 1. A few small pulmonary nodules are unchanged the largest 3 mm. 2. Incidental note made of minimal emphysema and mild bronchial thickening. 3. Incidental findings (s category): No significant incidental findings. ASSESSMENT: Lung-RADS Category 2: Benign appearance or behavior of nodules. N/A. RECOMMENDATION: Continued routine annual low-dose CT lung screening in 1 year is recommended. An order for CT CHEST LOW DOSE CANCER SCREENING ([id number]) can be placed.
== END 2024-01-23 16:19 | disposition home or self-care (01) ==
LOC: HO.CT 16:18
PROVIDERS: PCP Internal Medicine; Visit Provider Physician Assistant Medical
DX: Z12.2 Encounter for screening for malignant neoplasm of respiratory organs (principal); F17.210 Nicotine dependence, cigarettes, uncomplicated
CPT/HCPCS: 71271

== ENCOUNTER 2024-04-16 10:54 | Outpatient (AMB) | payer OTHER, SELFPAY ==
--- NOTE | 2024-04-16 10:58 | A.OFFPC_ITS ---
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 Last seen in 12/10/2023. Patient's colonoscopy is up-to-date because of the smoking history patient had a CT scan done 02/14/2024 noted few pulmonary nodules mild COPD. And will CT advised. marina interpret. has lactose intolerance [facility] Medical History (Updated 04/16/24 @ 11:15 by Corey Vincent MD) Tubular adenoma of colon Nicotine dependence, cigarettes, uncomplicated Type 2 diabetes mellitus with hyperglycemia Crush injury arm Onychomycosis Complex renal cyst Hypercholesterolemia Obesity Surgical History History of wisdom tooth extraction History of colonoscopy Family History Father No problems noted. Mother Diabetes Hypertension Breast cancer Heart attack Social History Housing: Apartment Alcohol intake: former Patient Tobacco Use Status: Current everyday Tobacco user Tobacco use type: Cigarette Cigarettes Per Day: 5 Years Smoked: (onset 14yo x 43yrs, max 1ppd, now 1/4ppd -35pyh) e-Cigarette/Vaping Use: Never Used Second Hand Smoke Exposure: No service: No Current occupational status: disabled Cognitive needs: No Hearing needs: No Vision needs: No Questionnaire Thrive Questionnaire Date Thrive assessed: 11/28/23 Are you currently unemployed and looking for a job?: No ELÍAS-7 AMB Questionnaire ELÍAS-7 Date ELÍAS - 7 assessed: 11/28/23 Source: Developed by Drs. Rosalio L. Constance Beth, Antonino Magana and colleagues, with an educational bharati from [employer]. Physical exam (Primary Care) Vital Signs: Last Vital Signs Pulse 58 04/16/24 11:01 BP 130/84 04/16/24 11:01 Pulse Ox 96 04/16/24 11:01 Oxygen Delivery Method Room Air 04/16/24 11:01 BMI result Body Mass Index 33.8 Tobacco/Smoking Status: Tobacco use Status Tobacco use date assessed 11/28/23 04/16/24 10:59 Patient Tobacco Use Status Current everyday Tobacco 04/16/24 10:59 Tobacco use type Cigarette 04/16/24 10:59 e-Cigarette/Vaping Use Never Used 04/16/24 10:59 Thrive Assessment: Date of Thrive Assessment Date Thrive assessed 11/28/23 04/16/24 10:59 Const General: alert; No acute distress Eyes Conjunctivae: conjunctivae normal Resp Auscultation: clear to auscultation bilaterally Cardio Rate: regular rate Rhythm: regular rhythm GI Inspection: Yes normal to inspection Extrem General: Yes normal to inspection and No edema Results AMB Hemoglobin A1c AMB Hemoglobin A1c 6.1 % Last Edit by HOMA Navarro on 04/16/24 11:0 8 Results Reviewed Results Reviewed: Laboratory Last Values Hgb A1c (Clinic) 6.1 % (4.0-6.0) H 04/16/24 10:57 Assessment and Plan Assessment & Plan (1) Obesity: Code(s): E66.9 - Obesity, unspecified Qualifiers: Obesity type: due to excess calories Obesity classification: adult class 3 (BMI >= 40) Serious obesity comorbidity presence: with serious comorbidity Body mass index: BMI 40.0-44.9 Qualified Code(s): E66.01 - Morbid (severe) obesity due to excess calories; Z68.41 - Body mass index [BMI]40.0- 44.9, adult Plan: Diet and exercise (2) Type 2 diabetes mellitus with hyperglycemia: Comment: [facility] Code(s): E11.65 - Type 2 diabetes mellitus with hyperglycemia Qualifiers: Diabetes mellitus half-way insulin use: without intermediate project manager use Qualified Code(s): E11.65 - Type 2 diabetes mellitus with hyperglycemia Plan: Decrease the amount of carbohydrate intake, pasta, bread, rice and potatoes are all sugar and that is aside from all the sweet stuff, remember that fruits are good but they are Sweet also. Hemoglobin A1c goal of less than 6.5 patient is on metformin 500 mg twice a day (3) Hypercholesterolemia: Code(s): E78.00 - Pure hypercholesterolemia, unspecified Plan: Avoid fried foods, chicken skin, eggs, butter margarine, pastries and meat. Be it pork or beef they have a lot of cholesterol LDL goal of less than 100 07/11/2023 last blood work (4) Nicotine dependence, cigarettes, uncomplicated: Comment: (current smoker, onset 14yo x 43yrs, max 1ppd, now 1/4ppd -35pyh) CT scan December 2022/January 2024 Code(s): F17.210 - Nicotine dependence, cigarettes, uncomplicated Plan: CT scan done January 2024 yearly (5) BPH w urinary obs/LUTS: Code(s): N40.1 - Benign prostatic hyperplasia with lower urinary tract symptoms; N13.8 - Other obstructive and reflux uropathy Plan: Stable (6) Generalized anxiety disorder: Comment: [facility] counseling every 2 weeks. Psychiatry Q 3 months Code(s): F41.1 - Generalized anxiety disorder Plan: Continue with counseling and therapy presently on sertraline 25 mg once a day Orders: Orders Comprehensive Met. Panel 3 Months E11.65 - Type 2 diabetes mellitus with hyperglycemia Lipid Panel 3 Months E11.65 - Type 2 diabetes mellitus with hyperglycemia, E78.00 - Pure hypercholesterolemia, unspecified Microalbumin, Random (w Creat) 3 Months E11.65 - Type 2 diabetes mellitus with hyperglycemia Creatinine Urine 3 Months E11.65 - Type 2 diabetes mellitus with hyperglycemia Vitamin B12 and Folate 3 Months E11.65 - Type 2 diabetes mellitus with hyperglycemia AMB Hemoglobin A1c Today E11.65 - Type 2 diabetes mellitus with hyperglycemia Complete Blood Count Auto Diff 3 Months E11.65 - Type 2 diabetes mellitus with hyperglycemia Free T4 (Free Thyroxine) 3 Months E11.65 - Type 2 diabetes mellitus with hyperglycemia Thyroid Stimulating Hormone 3 Months E11.65 - Type 2 diabetes mellitus with hyperglycemia Prostate Specific Antigen Scr 3 Months E11.65 - Type 2 diabetes mellitus with hyperglycemia Hemoglobin A1c 3 Months E11.65 - Type 2 diabetes mellitus with hyperglycemia Coding Level of Care Code Est Pt Level 4 (86479) Diagnoses Class 3 severe obesity due to excess calories with serious comorbidity and body mass index (BMI) of 40.0 to 44.9 in adult E66.01; Z68.41 Obesity type: due to excess calories Obesity classification: adult class 3 (BMI >= 40) Serious obesity comorbidity presence: with serious comorbidity Body mass index: BMI 40.0-44.9 Type 2 diabetes mellitus with hyperglycemia, without long-term current use of insulin E11.65 Diabetes mellitus intermediate project manager insulin use: without half-way use Hypercholesterolemia E78.00 Nicotine dependence, cigarettes, uncomplicated F17.210 BPH w urinary obs/LUTS N40.1; N13.8 Generalized anxiety disorder F41.1
[2024-04-16 11:01] VITALS: BP 130/84; PULSE 58; O2SAT 96; BMI 33.8
== END 2024-04-16 11:35 | disposition home or self-care (01) ==
PROVIDERS: PCP Internal Medicine; Visit Provider Internal Medicine
DX: E66.01 Morbid (severe) obesity due to excess calories (principal); Z68.41 Body mass index [BMI] 40.0-44.9, adult; E11.65 Type 2 diabetes mellitus with hyperglycemia; E78.00 Pure hypercholesterolemia, unspecified; F17.210 Nicotine dependence, cigarettes, uncomplicated; N40.1 Benign prostatic hyperplasia with lower urinary tract symptoms; N13.8 Other obstructive and reflux uropathy; F41.1 Generalized anxiety disorder

== ENCOUNTER → 2024-04-16 10:54 | Outpatient (BNVA) | payer OTHER, SELFPAY | PROVIDERS: PCP Internal Medicine; Visit Provider Internal Medicine | DX: E11.65 Type 2 diabetes mellitus with hyperglycemia (principal); E66.01 Morbid (severe) obesity due to excess calories; Z68.41 Body mass index [BMI] 40.0-44.9, adult; E78.00 Pure hypercholesterolemia, unspecified; N40.1 Benign prostatic hyperplasia with lower urinary tract symptoms; N13.8 Other obstructive and reflux uropathy; F41.1 Generalized anxiety disorder; F17.210 Nicotine dependence, cigarettes, uncomplicated; Z71.6 Tobacco abuse counseling; Z71.3 Dietary counseling and surveillance | CPT/HCPCS: 83036; 99212 ==

== ENCOUNTER 2024-07-31 11:26 | Outpatient (REF) | payer OTHER, SELFPAY ==
[2024-07-31 11:58] LABS: MANUAL DIFF FLAG NO
[2024-07-31 12:21] LABS: Basophils Absolute Auto 0.1 X10*3/uL (0.0-0.2); Basophils Percent Auto 0.6 % (0-2); Eosinophils Absolute Auto 0.1 X10*3/uL (0.0-0.4); Eosinophils Percent Auto 1.1 % (0-4); Hematocrit 48.2 % (42.0-52.0); Hemoglobin 16.5 g/dl (14.0-18.0); Imm Gran Abs Auto 0.02 X10*3/uL (0.00-0.03); Imm Gran Pct Auto 0.3 % (0.0-0.4); Lymphocytes Absolute Auto 1.7 X10*3/uL (1.2-4.9); Lymphocytes Percent Auto 21.6 % (20-40); Mean Corpuscular HGB Conc 34.2 g/dl (31.0-36.0); Mean Corpuscular Hemoglobin 32.2 pg (27.0-33.0); Mean Corpuscular Volume 94.1 fL (80.0-98.0); Mean Platelet Volume 11.5 fL (9.4-12.4); Monocytes Absolute Auto 0.4 X10*3/uL (0.1-1.2); Monocytes Percent Auto 5.3 % (2-11); Neutrophils Absolute Auto 5.6 x10*3/uL (2.0-8.3); Neutrophils Percent Auto 71.1 % (45-73); Platelet Count 308 X10*3/uL (160-400); Red Blood Count 5.12 X10*6/uL (4.60-5.80); Red Cell Distribution Width 13.4 % (11.0-16.0); White Blood Count 7.9 X10*3/uL (4.8-10.8)
[2024-07-31 12:38] LABS: Estimated Average Glucose 120 mg/dL; Hemoglobin A1c % 5.8 % (<6.0)
[2024-07-31 12:55] LABS: Creatinine Urine 233.84 mg/dL; Microalbum/Creatinine Ratio Ur 26.5 ug/mg cr (<30)
[2024-07-31 13:20] LABS: Alanine Aminotransferase 17 U/L (0-40); Albumin Level 4.7 g/dL (3.5-5.0); Alkaline Phosphatase 66 U/L (39-117); Anion Gap 13 (12-20); Aspartate Amino Transferase 20 U/L (5-37); Bilirubin Total 0.6 mg/dL (0.0-1.0); Blood Urea Nitrogen 10 mg/dL (9-16); Calcium 9.4 mg/dL (8.4-10.2); Carbon Dioxide 30 mmol/L (22-29); Chloride 105 mmol/L (96-108); Cholesterol 123 mg/dL (<200); Estimated Glomerular Filt Rate > 60; Free T4 (Free Thyroxine) 0.94 ng/dL (0.71-1.85); Glucose Random 115 mg/dL (60-115); HDL Cholesterol 43 mg/dL (>40); LDL Cholesterol Calculated 60 mg/dL (<100); Potassium 4.2 mmol/L (3.3-5.1); Sodium 144 mmol/L (135-145); Thyroid Stimulating Hormone 1.35 uIU/mL (0.32-4.0); Total Protein 7.7 g/dL (6.5-8.0); Triglycerides 102 mg/dL (<150)
[2024-07-31 13:31] LABS: Folate 8.1 ng/mL (> or = 4.0); Prostate Specific Antigen Scr 0.51 ng/mL (<0.05-4.0); Vitamin B12 327 pg/mL (200-900)
== END 2024-07-31 11:27 | disposition home or self-care (01) ==
LOC: HO.LAB 11:26
PROVIDERS: PCP Internal Medicine; Visit Provider Internal Medicine
DX: E78.00 Pure hypercholesterolemia, unspecified (principal); E11.65 Type 2 diabetes mellitus with hyperglycemia; Z12.5 Encounter for screening for malignant neoplasm of prostate
CPT/HCPCS: 36415; 80053; 80061; 82043; 82570; 82607; 82746; 83036; 84153; 84439; 84443; 85025

== ENCOUNTER 2024-08-05 13:22 | Outpatient (AMB) | payer OTHER, SELFPAY ==
--- NOTE | 2024-08-05 13:29 | MHC.PC.OV ---
Vital Signs 08/05/24 13:31 Height 5 ft 9 in Weight 218 lb BMI 32.2 BP 124/86 Blood Pressure Location Lt brachial Position Sitting Pulse 89 Pulse Source Pulse Oximeter Temp 97.7 F Temp Source Skin Pulse Oximetry (%) 95 Oxygen Delivery Method Room Air Intake Visit Reasons: Diabetes mellitus Intake Note: Patient is here to follow up on DM. Supervisor Mail Carriers Required: No Business Management Specialist: Not Required per policy Accompanied by: Self / Same As Patient Allergies No Known Allergies [No Known Allergies*] Allergy (Verified 08/05/24 13:31) Tobacco use date assessed: 08/05/24 Dental Screening Dental Screen Date: 08/05/24 Did you have a dental visit in the last 12 months?: No Did you have a dental problem in the last 6 months where you did not have access to dental care?: No Was dental information given to patient?: No HPI Diabetes mellitus HPI Details The patient is a 64-year-old male presenting with a wellness visit. The patient reports a significant weight loss since the last visit, stating he has lost 11 pounds due to improved dietary habits and increased physical activity, including walking for several hours daily. His appetite remains good, and he does not experience hunger frequently. The patient has a history of hypertension, but his current blood pressure readings are within a normal range. Recent laboratory tests, including blood count, sodium, potassium, kidney function, A1c, liver function, and vitamin levels, are also within normal limits. Notably, the hemoglobin A1c has improved from 6.1 to 5.8, indicating a better control of prediabetes. Cholesterol levels are noted to be favorable. The patient has been advised to quit smoking, but he continues to use tobacco, specifically [place]. Although he is aware of its implications, he cites difficulty in cessation due to economic constraints and habitual patterns. Additionally, the patient reports having regular bowel movements without blood in the stool, and he maintains adequate hydration. There is a discussion regarding vaccination status, where it is noted he had not received a flu shot prior to this visit. [facility] Medical History (Updated 04/16/24 @ 11:15 by Corey Vincent MD) Tubular adenoma of colon Nicotine dependence, cigarettes, uncomplicated Type 2 diabetes mellitus with hyperglycemia Crush injury arm Onychomycosis Complex renal cyst Hypercholesterolemia Obesity Surgical History History of wisdom tooth extraction History of colonoscopy Family History Father No problems noted. Mother Diabetes Hypertension Breast cancer Heart attack Social History (Updated 08/05/24 @ 13:35 by HOMA Holt) Housing: Apartment Alcohol intake: former Patient Tobacco Use Status: Current everyday Tobacco user Tobacco use type: Cigarette Cigarette Packs Per Day: 0.5 Cigarettes Per Day: 4 Years Smoked: (onset 14yo x 43yrs, max 1ppd, now 1/4ppd -35pyh) Packs Per Year: 0 Packs per year/per ci.00 e-Cigarette/Vaping Use: Never Used Second Hand Smoke Exposure: Yes service: No Current occupational status: disabled Cognitive needs: No Hearing needs: No Vision needs: No Questionnaire PHQ-9 Over the last 2 weeks, how often have you been bothered by any of the following problems? 1. Little interest or pleasure in doing things: not at all 2. Feeling down, depressed, or hopeless: several days 3. Trouble falling or staying asleep, or sleeping too much: not at all 4. Feeling tired or having little energy: not at all 5. Poor appetite or overeating: not at all 6. Feeling bad about yourself - or that you are a failure or have let yourself or your family down: not at all 7. Trouble concentrating on things, such as reading the newspaper or watching television: not at all 8. Moving or speaking so slowly that other people could have noticed. Or the opposite - being so fidgety or restless that you have been moving around a lot more than usual: not at all 9. Thoughts that you would be better off or of hurting yourself in some way: not at all Total score: 1 Depression Screening Interpretation: Positive Depression Screening Done: Yes Source: Developed by Drs. Rosalio Beth, Constance Lewis, Antonino Magana and colleagues, with an educational bharati from [employer]. Thrive Questionnaire Date Thrive assessed: 08/05/24 I am a: Patient What is your living situation today?: I have a steady place to live Within the past 12 months, did the food you bought not last and you didn't have the money to get more?: Never true Within the past 12 months, did you worry whether your food would run out before you got money to buy more?: Never true Do you have trouble paying for medicines?: No Do you have trouble getting transportation to medical appointments?: No Do you have trouble paying your heating and electricity bill?: No Do you have trouble taking care of your child, family member or friend?: No Do you have trouble with day-to-day activities such as bathing, preparing meals, shopping, managing finances, etc.?: No Are you currently unemployed and looking for a job?: No Are you interested in more education?: No Please select the resources that you would like help with: None Currently or been in a relationship where the following occur: No concerns reported THRIVE Score: 0 AUDIT C Alcohol Use Questionnaire (AUDIT-C) 1. How often do you have a drink containing alcohol?: Never Total Score: 0 ELÍAS-7 AMB Questionnaire ELÍAS-7 Date ELÍAS - 7 assessed: 08/05/24 Feeling nervous, anxious, or on edge: 0 = Not at all Not being able to stop or control worryin = Not at all Worrying too much about different things: 0 = Not at all Trouble relaxin = Not at all Being so restless that it is hard to sit still: 0 = Not at all Becoming easily annoyed or irritable: 0 = Not at all Feeling afraid as if something awful might happen: 0 = Not at all Total ELÍAS-7 score (0-4 normal; 5-9 mild; 10-14 moderate; 15-21 severe): 0 Source: Developed by Drs. Rosalio Beth, Constance Lewis, Antonino Magana and colleagues, with an educational bharati from [employer]. Physical exam (Primary Care) Vital Signs: Last Vital Signs Temp 97.7 F 08/05/24 13:31 Pulse 89 08/05/24 13:31 BP 124/86 08/05/24 13:31 Pulse Ox 95 08/05/24 13:31 Oxygen Delivery Method Room Air 08/05/24 13:31 BMI result Body Mass Index 32.2 Tobacco/Smoking Status: Tobacco use Status Tobacco use date assessed 08/05/24 08/05/24 13:37 Patient Tobacco Use Status Current everyday Tobacco 08/05/24 13:37 Tobacco use type Cigarette 08/05/24 13:37 e-Cigarette/Vaping Use Never Used 08/05/24 13:37 PHQ-9: PHQ-9 Score PHQ-9: Total score 1 08/05/24 13:37 Depression Screening Interpretation: Positive Thrive Assessment: Date of Thrive Assessment Date Thrive assessed 08/05/24 08/05/24 13:37 Currently or been in a relationship where the following occur: No concerns reported Const General: alert; No acute distress Eyes Conjunctivae: conjunctivae normal Resp Auscultation: clear to auscultation bilaterally Cardio Rate: regular rate Rhythm: regular rhythm GI Inspection: Yes normal to inspection Extrem General: Yes normal to inspection and No edema Coding Level of Care Code Est Pt Level 4 (76259) Diagnoses Type 2 diabetes mellitus with hyperglycemia, without long-term current use of insulin E11.65 Diabetes mellitus termite control service representative insulin use: without termite control service representative use Hypercholesterolemia E78.00 Nicotine dependence, cigarettes, uncomplicated F17.210 Class 3 severe obesity due to excess calories with serious comorbidity and body mass index (BMI) of 40.0 to 44.9 in adult E66.01; Z68.41 Obesity type: due to excess calories Obesity classification: adult class 3 (BMI >= 40) Serious obesity comorbidity presence: with serious comorbidity Body mass index: BMI 40.0-44.9 BPH w urinary obs/LUTS N40.1; N13.8 Generalized anxiety disorder F41.1 Assessment & Plan Assessment & Plan (1) Type 2 diabetes mellitus with hyperglycemia: Comment: [facility] Code(s): E11.65 - Type 2 diabetes mellitus with hyperglycemia Category: Medical Qualifiers: Diabetes mellitus penitentiary insulin use: without termite control service representative use Qualified Code(s): E11.65 - Type 2 diabetes mellitus with hyperglycemia (2) Hypercholesterolemia: Code(s): E78.00 - Pure hypercholesterolemia, unspecified Category: Medical (3) Nicotine dependence, cigarettes, uncomplicated: Comment: (current smoker, onset 14yo x 43yrs, max 1ppd, now 1/4ppd -35pyh) CT scan December 2022/January 2024 Code(s): F17.210 - Nicotine dependence, cigarettes, uncomplicated Category: Medical Plan: last CT 01/2024 (4) Obesity: Code(s): E66.9 - Obesity, unspecified Category: Medical Qualifiers: Obesity type: due to excess calories Obesity classification: adult class 3 (BMI >= 40) Serious obesity comorbidity presence: with serious comorbidity Body mass index: BMI 40.0-44.9 Qualified Code(s): E66.01 - Morbid (severe) obesity due to excess calories; Z68.41 - Body mass index [BMI]40.0-44.9, adult (5) BPH w urinary obs/LUTS: Code(s): N40.1 - Benign prostatic hyperplasia with lower urinary tract symptoms; N13.8 - Other obstructive and reflux uropathy Category: Medical Plan: stable (6) Generalized anxiety disorder: Comment: [employer] counseling every 2 weeks. Psychiatry Q 3 months Code(s): F41.1 - Generalized anxiety disorder Category: Medical Plan: continue with counselling and therapy Plan - Tobacco use disorder: Continue to emphasize smoking cessation. Discuss strategies and resources for quitting, given the health risks associated with tobacco use. - Hyperlipidemia: Continue current management as cholesterol levels are within acceptable limits. No modifications necessary at this time. - : Encourage continuation of healthy eating and physical activities that have contributed to weight loss and improved A1c. Monitor glucose levels and provide dietary counseling. - Hypertension: Maintain current management as blood pressure is under control. Emphasize dietary and lifestyle modifications. - Preventative care: Administer flu vaccine during this visit to protect against seasonal influenza. Suggest ongoing vigilance regarding hygiene practices to prevent viral infections.
[2024-08-05 13:31] VITALS: BP 124/86; PULSE 89; TEMP 36.5; O2SAT 95; BMI 32.2
== END 2024-08-05 13:53 | disposition home or self-care (01) ==
PROVIDERS: PCP Internal Medicine; Visit Provider Internal Medicine
DX: E11.65 Type 2 diabetes mellitus with hyperglycemia (principal); E66.01 Morbid (severe) obesity due to excess calories; Z68.41 Body mass index [BMI] 40.0-44.9, adult; E78.00 Pure hypercholesterolemia, unspecified; F17.210 Nicotine dependence, cigarettes, uncomplicated; N40.1 Benign prostatic hyperplasia with lower urinary tract symptoms; N13.8 Other obstructive and reflux uropathy; F41.1 Generalized anxiety disorder; Z23 Encounter for immunization

== ENCOUNTER → 2024-08-05 13:22 | Outpatient (BNVA) | payer OTHER, SELFPAY | PROVIDERS: PCP Internal Medicine; Visit Provider Internal Medicine | DX: E11.65 Type 2 diabetes mellitus with hyperglycemia (principal); E78.00 Pure hypercholesterolemia, unspecified; F17.210 Nicotine dependence, cigarettes, uncomplicated; E66.01 Morbid (severe) obesity due to excess calories; N40.1 Benign prostatic hyperplasia with lower urinary tract symptoms; N13.8 Other obstructive and reflux uropathy; F41.1 Generalized anxiety disorder; Z23 Encounter for immunization; Z68.41 Body mass index [BMI] 40.0-44.9, adult | CPT/HCPCS: 90471; 90656; 96127; 99212 ==

== ENCOUNTER 2025-02-05 11:15 | Outpatient (AMB) | payer OTHER, SELFPAY ==
--- NOTE | 2025-02-05 11:19 | MHC.PC.OV ---
Vital Signs 02/05/25 11:20 Height 5 ft 9 in Weight 207 lb 2 oz BMI 30.6 BP 130/82 Blood Pressure Location Lt brachial Position Sitting Pulse 74 Pulse Source Pulse Oximeter Temp 97.3 F Temp Source Temporal Artery Scan Pulse Oximetry (%) 96 Oxygen Delivery Method Room Air Intake Visit Reasons: Annual Exam Allergies No Known Allergies (No Known Allergies*) Allergy (Verified 02/05/25 11:23) Medication List - Last Reconciled 02/05/25 by Corey Vincent MD acetaminophen ER (Tylenol Arthritis Pain) 1,300 mg (2 x 650 mg) PO Q12H atorvastatin 20 mg PO DAILY blood sugar diagnostic (FreeStyle Lite Strips) 1 strip miscellaneous DAILY blood-glucose meter (FreeStyle [place] Lite kit) As directed lancets (FreeStyle Lancets) 28 gauge miscellaneous DAILY lisinopril 5 mg PO DAILY metformin 500 mg PO BIDWMEAL 90 days mupirocin 2% 1 appl topical BID olopatadine 0.1% 1 drp ophthalmic (eye) BID 30 days psyllium husk (Fiber (psyllium husk)) 0.52 grams PO BEDTIME PRN sertraline 25 mg PO DAILY Tobacco use date assessed: 02/05/25 Dental Screening Dental Screen Date: 02/05/25 Did you have a dental visit in the last 12 months?: Yes Did you have a dental problem in the last 6 months where you did not have access to dental care?: No Was dental information given to patient?: Patient has dentist HPI Annual Exam HPI Details 64-year-old obese male noted 11 lb weight loss with a history of BPH generalized anxiety disorder history of tubular adenoma of the colon with last colonoscopy in February 2020 smoker with diabetes mellitus hypercholesterolemia coming in for physical exam last seen in July 2024. Patient has a controlled diabetes mellitus patient's last blood work was od count. Normal electrolytes renal function noted hemoglobin A1c today is 5.9 liver function is good LDL cholesterol is 60 and no proteinuria. Patient did have lung cancer screening with a CT of the chest done in January 2024 noted pulmonary nodules unchanged 3 mm with mild emphysema. complains L calf pain, deny fall 2 weeks uses knee brace but deny knee pain PFSH Medical History Tubular adenoma of colon Nicotine dependence, cigarettes, uncomplicated Type 2 diabetes mellitus with hyperglycemia Crush injury arm Onychomycosis Complex renal cyst Hypercholesterolemia Obesity Surgical History History of wisdom tooth extraction History of colonoscopy Family History Father No problems noted. Mother Diabetes Hypertension Breast cancer Heart attack Social History (Updated 02/05/25 @ 11:58 by Corey Vincent MD) Housing: Apartment Alcohol intake: former Patient Tobacco Use Status: Current everyday Tobacco user Tobacco use type: Cigarette Cigarette Packs Per Day: 0.5 Cigarettes Per Day: 5 Years Smoked: (onset 14yo x 43yrs, max 1ppd, now 1/4ppd -35pyh), e-Cigarette/Vaping Use: Never Used Second Hand Smoke Exposure: Yes service: No Current occupational status: disabled Cognitive needs: No Hearing needs: No Vision needs: No Questionnaire PHQ-9 Over the last 2 weeks, how often have you been bothered by any of the following problems? 1. Little interest or pleasure in doing things: not at all 2. Feeling down, depressed, or hopeless: not at all 3. Trouble falling or staying asleep, or sleeping too much: not at all 4. Feeling tired or having little energy: not at all 5. Poor appetite or overeating: not at all 6. Feeling bad about yourself - or that you are a failure or have let yourself or your family down: several days 7. Trouble concentrating on things, such as reading the newspaper or watching television: more than half the days 8. Moving or speaking so slowly that other people could have noticed. Or the opposite - being so fidgety or restless that you have been moving around a lot more than usual: not at all 9. Thoughts that you would be better off or of hurting yourself in some way: not at all Total score: 3 Source: Developed by Drs. Rosalio Beth, Constance Lewis, Antonino Magana and colleagues, with an educational bharati from [employer]. Thrive Questionnaire Date Thrive assessed: 08/05/24 I am a: Patient What is your living situation today?: I have a steady place to live Within the past 12 months, did the food you bought not last and you didn't have the money to get more?: Often true Within the past 12 months, did you worry whether your food would run out before you got money to buy more?: Often true Do you have trouble paying for medicines?: No Do you have trouble getting transportation to medical appointments?: No Do you have trouble paying your heating and electricity bill?: No Do you have trouble taking care of your child, family member or friend?: No Do you have trouble with day-to-day activities such as bathing, preparing meals, shopping, managing finances, etc.?: No Are you currently unemployed and looking for a job?: Yes Are you interested in more education?: No Please select the resources that you would like help with: None Currently or been in a relationship where the following occur: No concerns reported THRIVE Score: 2 AUDIT C Alcohol Use Questionnaire (AUDIT-C) 1. How often do you have a drink containing alcohol?: Never 3. How often do you have six or more drinks on one occasion?: Never Total Score: 0 ELÍAS-7 AMB Questionnaire ELÍAS-7 Date ELÍAS - 7 assessed: 08/05/24 Feeling nervous, anxious, or on edge: 2 = More than half the days Not being able to stop or control worryin = More than half the days Worrying too much about different things: 2 = More than half the days Trouble relaxin = More than half the days Being so restless that it is hard to sit still: 2 = More than half the days Becoming easily annoyed or irritable: 2 = More than half the days Feeling afraid as if something awful might happen: 2 = More than half the days Total ELÍAS-7 score (0-4 normal; 5-9 mild; 10-14 moderate; 15-21 severe): 14 Source: Developed by Drs. Rosalio Beth, Constance Lewis, Antonino Magana and colleagues, with an educational bharati from [employer]. Review of Systems Const Denies poor appetite and Denies weakness Eyes Denies no additional complaints ENT Reports Normal hearing present, Denies dizziness, Denies nasal congestion, Denies tinnitus and Denies sore throat Card Denies chest pain, Denies syncope, Denies rapid heart rate and Denies dyspnea Resp Denies cough and Denies dyspnea GI Denies change in stool character, Reports constipation, Denies diarrhea, Denies nausea and Denies vomiting Denies dysuria and Denies urinary frequency Neuro Reports Normal hearing present, Denies confusion, Denies dizziness, Denies syncope and Denies weakness Psych Denies confusion Physical exam (Primary Care) Vital Signs: Last Vital Signs Temp 97.3 F 02/05/25 11:20 Pulse 74 02/05/25 11:20 BP 130/82 02/05/25 11:20 Pulse Ox 96 02/05/25 11:20 Oxygen Delivery Method Room Air 02/05/25 11:20 BMI result Body Mass Index 30.6 Tobacco/Smoking Status: Tobacco use Status Tobacco use date assessed 02/05/25 02/05/25 11:24 Patient Tobacco Use Status Current everyday Tobacco 02/05/25 11:58 Tobacco use type Cigarette 02/05/25 11:58 e-Cigarette/Vaping Use Never Used 02/05/25 11:58 PHQ-9: PHQ-9 Score PHQ-9: Total score 3 02/05/25 11:52 Thrive Assessment: Date of Thrive Assessment Date Thrive assessed 08/05/24 02/05/25 11:24 Currently or been in a relationship where the following occur: No concerns reported Const General: No confusion Orientation/consciousness: No confusion HENMT Head: Yes normocephalic Ears: external ears normal and TM's normal bilaterally Face and sinus: Yes normal facial exam Mouth: moist mucous membranes Throat: Yes tonsils normal Eyes Conjunctivae: conjunctivae normal Pupils: Equal, round and reactive pupils present and Pupil accommodation reflex normal Direct Ophthalmoscopy: normal light reflex Neck Neck: No lymphadenopathy Thyroid: Thyroid normal Chest Chest palpation & inspection: normal inspection of the chest Resp Effort & Inspection: normal respiratory effort and no audible wheezes Auscultation: clear to auscultation bilaterally, no crackles, no wheezes and lung sounds not diminished Cardio Rate: regular rate Rhythm: regular rhythm Peripheral pulses: radial pulses present and dorsalis pedis present GI Other: Gastroenterology colon test pending Palpation (GI): no masses Auscultation: normal bowel sounds and normoactive bowel sounds Rectal Exam - Male: Yes deferred Male General Exam: Yes normal external exam Skin General skin exam: no rashes or lesions noted Rashes: no rashes Neuro General: No confusion Cranial nerves: Yes Equal, round and reactive pupils present and Yes Normal hearing present Cognition (Neuro): normal cognition Gait exam (Neuro): Normal gait present Motor exam (neuro): 5/5 motor strength present throughout Deep tendon reflexes (DTR's): Right brachioradialis reflex intensity grade: 2+, Left brachioradialis reflex intensity grade: 2+, Right patellar reflex intensity grade: 2+ and Left patellar reflex intensity grade: 2+ Extrem General: No edema Results AMB Hemoglobin A1c AMB Hemoglobin A1c 5.9 % Last Edit by Anjana De La Garza CMA on 02/05/25 11:29 Results Reviewed Results Reviewed: Laboratory Last Values Hgb A1c (Clinic) 5.9 % (4.0-6.0) 02/05/25 11:25 Coding Level of Care Code Est Pt Prev Care >65y(60420) Diagnoses Annual physical exam Z00.00 Nicotine dependence, cigarettes, uncomplicated F17.210 Type 2 diabetes mellitus with hyperglycemia, without long-term current use of insulin E11.65 Diabetes mellitus long term care administrator insulin use: without custodial use Hypercholesterolemia E78.00 Tubular adenoma of colon D12.6 Generalized anxiety disorder F41.1 Assessment & Plan Assessment & Plan (1) Annual physical exam: Code(s): Z00.00 - Encounter for general adult medical examination without abnormal findings Category: Medical Plan: Patient is advised to eat healthy, keep well hydrated, keep active and have adequate sleep. (2) Nicotine dependence, cigarettes, uncomplicated: Comment: (current smoker, onset 14yo x 43yrs, max 1ppd, now 1/4ppd -35pyh) CT scan December 2022/January 2024 Code(s): F17.210 - Nicotine dependence, cigarettes, uncomplicated Category: Medical Plan: advised strongly to stop (3) Type 2 diabetes mellitus with hyperglycemia: Comment: [facility] Code(s): E11.65 - Type 2 diabetes mellitus with hyperglycemia Category: Medical Qualifiers: Diabetes mellitus long term care administrator insulin use: without long term care administrator use Qualified Code(s): E11.65 - Type 2 diabetes mellitus with hyperglycemia Plan: Decrease the amount of carbohydrate intake, pasta, bread, rice and potatoes are all sugar and that is aside from all the sweet stuff, remember that fruits are good but they are Sweet also. On metformin (4) Hypercholesterolemia: Code(s): E78.00 - Pure hypercholesterolemia, unspecified Category: Medical Plan: Avoid fried foods, chicken skin, eggs, butter margarine, pastries and meat. Be it pork or beef they have a lot of cholesterol (5) Tubular adenoma of colon: Comment: (TA on 2020 scope) Code(s): D12.6 - Benign neoplasm of colon, unspecified Category: Medical Plan: Reminded about colonoscopy (6) Generalized anxiety disorder: Comment: [facility] counseling every 2 weeks. Psychiatry Q 3 months Code(s): F41.1 - Generalized anxiety disorder Category: Medical Plan: Stable on sertraline, continue with counseling and therapy Orders: Orders Hemoglobin A1c 6 Months E11.65 - Type 2 diabetes mellitus with hyperglycemia Thyroid Stimulating Hormone 6 Months E11.65 - Type 2 diabetes mellitus with hyperglycemia Lipid Panel 6 Months E11.65 - Type 2 diabetes mellitus with hyperglycemia, E78.00 - Pure hypercholesterolemia, unspecified Creatinine Urine 6 Months E11.65 - Type 2 diabetes mellitus with hyperglycemia AMB Hemoglobin A1c Today Z13.9 - Encounter for screening, unspecified Complete Blood Count Auto Diff 6 Months E11.65 - Type 2 diabetes mellitus with hyperglycemia Comprehensive Met. Panel 6 Months E11.65 - Type 2 diabetes mellitus with hyperglycemia Free T4 (Free Thyroxine) 6 Months E11.65 - Type 2 diabetes mellitus with hyperglycemia Vitamin B12 and Folate 6 Months E11.65 - Type 2 diabetes mellitus with hyperglycemia Prostate Specific Antigen Scr 6 Months E11.65 - Type 2 diabetes mellitus with hyperglycemia Microalbumin, Random (w Creat) 6 Months E11.65 - Type 2 diabetes mellitus with hyperglycemia Referrals Gastroenterology Referral D12.6 - Benign neoplasm of colon, unspecified
[2025-02-05 11:20] VITALS: BP 130/82; PULSE 74; TEMP 36.3; O2SAT 96; BMI 30.6
== END 2025-02-05 12:11 | disposition home or self-care (01) ==
LOC: HO.HMCH 11:16
PROVIDERS: PCP Internal Medicine; Visit Provider Internal Medicine
DX: Z00.00 Encounter for general adult medical examination without abnormal findings (principal); E11.65 Type 2 diabetes mellitus with hyperglycemia; F17.210 Nicotine dependence, cigarettes, uncomplicated; E78.00 Pure hypercholesterolemia, unspecified; D12.6 Benign neoplasm of colon, unspecified; F41.1 Generalized anxiety disorder

== ENCOUNTER → 2025-02-05 11:15 | Outpatient (BNVA) | payer OTHER, SELFPAY | PROVIDERS: PCP Internal Medicine; Visit Provider Internal Medicine | DX: Z00.00 Encounter for general adult medical examination without abnormal findings (principal); E11.65 Type 2 diabetes mellitus with hyperglycemia; N40.0 Benign prostatic hyperplasia without lower urinary tract symptoms; F41.1 Generalized anxiety disorder; E78.00 Pure hypercholesterolemia, unspecified; D12.6 Benign neoplasm of colon, unspecified; M79.662 Pain in left lower leg; F17.210 Nicotine dependence, cigarettes, uncomplicated | CPT/HCPCS: 83036; 96127; 99396 ==

== ENCOUNTER 2025-03-09 09:48 | Outpatient (REF) | payer OTHER, SELFPAY ==
--- NOTE | ~2025-03-09 | CT_ITS ---
CLINICAL HISTORY: F17.210 - Nicotine dependence, cigarettes, uncomplicated CT lung cancer screening (LDCT) Comparison: CT/REG/MO/SR - CT LUNG SCREENING - 01/23/24 16:52 EDT Technique: Axial CT images of the chest using low-dose technique. Referring provider counseled the patient on shared decision-making for LDCT screening. Additional counseling was provided on smoking cessation. Effective radiation dose total: DLP 62.7 mGycm, CTDIvol 1.8 mGy. Findings: Lung: Several tiny pulmonary nodules, for example a 3 mm left lower lobe nodule on image 89. These are without change. There is no new pulmonary nodule. Coronary artery calcifications: Mild Limited upper abdomen: 13 cm cyst within the right kidney. Small liver cyst. Other: None Impression: Category 2: Benign appearance or behavior. Continue annual screening. # #L2 ## Category 1: Normal; continue annual screening Category 2: Benign appearance or behavior, continue annual screening Category 3: Probably benign, [address] recommended Category 4A: Suspicious, [address] recommended; may consider PET/CT Category 4B: Suspicious, Additional diagnostics and/or tissue sampling recommended Category 4X: Suspicious, Additional diagnostics and/or tissue sampling recommended Category 0: Recalls (incomplete screen due to Incomplete coverage, Noise, Respiratory motion, Expiration, Obscured by acute abnormality) This document has been electronically signed by: Adia Robison MD on 03/10/2025 14:50:15
== END 2025-03-09 09:49 | disposition home or self-care (01) ==
LOC: HO.CT 09:48
PROVIDERS: PCP Internal Medicine; Visit Provider Physician Assistant Medical
DX: Z12.2 Encounter for screening for malignant neoplasm of respiratory organs (principal); F17.210 Nicotine dependence, cigarettes, uncomplicated
CPT/HCPCS: 71271

== ENCOUNTER → 2025-03-09 09:51 | Outpatient (BNV) | payer OTHER, SELFPAY | PROVIDERS: PCP Internal Medicine; Visit Provider Radiology Diagnostic Radiology | DX: F17.210 Nicotine dependence, cigarettes, uncomplicated (principal) | CPT/HCPCS: 71271 ==